=== PATIENT | male | born 1985 | race Caucasian/White ===

== ENCOUNTER 2019-09-21 02:34 | Inpatient (IN) | payer MEDICAID ==
[2019-09-21] VITALS (20 sets, daily range): BP systolic 109–146; BP diastolic 41–77; BMI 31.0
[~2019-09-21] VITALS: Ht 165.1 cm; Wt 85.1 kg
--- NOTE | 2019-09-21 02:40 | NUR ---
PT WAS ASSIGNED TO OUR FACILITY VIA TRAUMA COMM. TRAUMA BAND NUMBER #[id number].
[2019-09-21] MEDS ORDERED: BUSPAR 15 MG TA15 MG PO (02:46)
[2019-09-21] MEDS ORDERED: KEPPRA1000 MG PO (02:46)
--- NOTE | 2019-09-21 02:56 | NUR ---
ASSUMED CARE OF PATIENT. REPORT RECEIVED FROM Yecenia MABRY RN. WAITING TO HEAR FROM [facility] FOR POSSIBLE TRANSFER
[2019-09-21 03:05] LABS: BASOPHILS 0.3 % (0-2); EOSINOPHILS 0.2 % (0-7); HEMATOCRIT 41.1 % (42.0-54.0); HEMOGLOBIN 13.5 g/dL (13.5-17.5); IMMATURE GRANULOCYTES 0.8 % (0-5); LYMPHOCYTES 24.3 % (15-50); MCH 29.4 pg (26.0-34.0); MCHC 32.8 g/dL (31.0-37.0); MCV 89.5 fL (80.0-100.0); MEAN PLATELET VOLUME 9.1 fL (7.4-10.4); MONOCYTES 7.8 % (2-11); NEUTROPHILS 66.6 % (40-80); PLATELET COUNT 248 10x3/uL (130-400); RBC 4.59 10x6/uL (4.20-6.10); WBC 5.9 10x3/uL (4.8-10.8)
[2019-09-21 03:11] LABS: ANION GAP 9.1 mmol/L (8-16); CALCIUM 8.1 mg/dL (8.5-10.1); CARBON DIOXIDE 28.3 mmol/L (21.0-32.0); CREATININE - SERUM 1.2 mg/dL (0.6-1.3); POTASSIUM - SERUM 3.4 mmol/L (3.5-5.1)
[2019-09-21 03:15] LABS: ALBUMIN 2.9 g/dL (3.4-5.0); BILIRUBIN - TOTAL 0.55 mg/dL (0.2-1.3); C-REACTIVE PROTEIN 12.8 mg/dL (0.0-0.9); PROTEIN - SERUM 7.3 g/dL (6.4-8.2)
--- NOTE | 2019-09-21 05:45 | NUR ---
PT ARRIVED VIA STREATCHER FROM ER WITH N95 ON IN STABLE CONDITION. GUARD AT BEDSIDE. MOVED OVER TO BED BYSELF SAFELY. BP IS 114/66, SPO2 93% ON 5L HIGH FLOW, RR 37, AND HR 88. HE DOES C/O OF CHEST PAIN "8/10" NUEMREIC SCALE "ITS LIKE PRESSURE". HE VOICES"ITS BEEN HURTING FOR ABOUT A WEEK NOW BUT GOTTEN WORSE ABOUT 3 HOURS AGO". HE IS NORMAL SINUS ON MONITOR. CHECKING CARDIAC ENZYMES STAT. HE IS A&OX4. ORIENTED TO CALL LIGHT. BED IS LOW,SIDE RAISLX2. PERFORMED ASSESSMENT AND WILL DO HISTORY AND DOC IN FLOWSHEET.
[2019-09-21 06:29] LABS: CREATINE KINASE 67 UL (21-232)
[2019-09-21 06:31] LABS: TROPONIN-I < 0.017 ng/mL (0.000-0.060)
--- NOTE | 2019-09-21 07:00 | NUR ---
PT REPORT RECEIVED FROM SUPERVISOR FITTING NURSE. NO ACUTE SIGNS OF DISTRESS NOTED. SHIFT ASSESSMENT COMPLETED. PT IN WRIST AND ANKLE SHACKLES. GUARD OUTSIDE OF DOOR. WILL CONTINUE TO MONITOR
--- NOTE | 2019-09-21 09:28 | NUR ---
PT ASKED FOR CUP OF WATER. PROVIDED TO PT. RESTING IN BED. NO COMPLAINTS NOTED. WILL CONTINUE TO MONITOR
--- NOTE | 2019-09-21 09:46 | NUR ---
DR CHAVEZ IN ROOM. UPDATE GIVEN. WILL CONTINUE TO MONITOR. OKAY WITH PT HAVING DIET.
--- NOTE | 2019-09-21 12:30 | NUR ---
COVID SWAB AND STREP SWAB PERFORMED ON PT. PT TOLERATED WELL. WRIST SHACKLES REMOVED SO PT CAN EAT LUNCH. WILL CONTINUE TO MONITOR
--- NOTE | 2019-09-21 14:17 | NUR ---
IN ROOM TRYING TO DRAW BLOOD. UNSUCCESSFUL. CALLED LAB TO COME TRY TO DRAW BLOOD. WILL CONTINUE TO MONITOR
--- NOTE | 2019-09-21 15:15 | NUR ---
IN PT ROOM. TURNED O2 UP TO 8L HFNC. PT WAS SATTING 89%. NOW SATTING 92%. WILL CONTINUE TO MONITOR
--- NOTE | 2019-09-21 17:02 | NUR ---
IN ROOM TAKING PT DINNER TRAY. NO COMPLAINTS NOTED AT THIS TIME. O2 INCREASED TO 9L HFNC. PT O2 SAT WAS 90%. WILL CONTINUE TO MONITOR
--- NOTE | 2019-09-21 18:12 | NUR ---
LAB CALLED. PT IS COVID POSITIVE. WILL NOTIFY DR JIN
--- NOTE | 2019-09-21 18:25 | NUR ---
PAGED DR JIN TO NOTIFY HIM OF POSITIVE COVID RESULT. AWAITING CALL BACK
--- NOTE | 2019-09-21 19:00 | NUR ---
SHIFT ASSESSMENT COMPLETE. VS STABLE. NO VISUAL CUES OF DISTRESS NOTED. NS ON THE MONITOR AT THIS TIME.
--- NOTE | 2019-09-21 21:00 | NUR ---
VITAL SIGNS STABLE. NO VISUAL CUES OF DISTRESS NOTED. NS ON THE MONITOR AT THIS TIME.
--- NOTE | 2019-09-21 23:00 | NUR ---
VITAL SIGNS STABLE. NO VISUAL CUES OF DISTRESS NOTED. NS ON THE MONITOR AT THIS TIME.
[2019-09-22] VITALS (23 sets, daily range): BP systolic 112–142; BP diastolic 60–105
--- NOTE | 2019-09-22 01:00 | NUR ---
VITAL SIGNS STABLE. NO VISUAL CUES OF DISTRESS NOTED. NS ON THE MONITOR AT THIS TIME.
--- NOTE | 2019-09-22 03:00 | NUR ---
VITAL SIGNS STABLE. NO VISUAL CUES OF DISTRESS NOTED. NS ON THE MONITOR AT THIS TIME.
--- NOTE | 2019-09-22 05:00 | NUR ---
VITAL SIGNS STABLE. NO VISUAL CUES OF DISTRESS NOTED. NS ON THE MONITOR AT THIS TIME.
[2019-09-22 06:57] LABS: BASOPHILS 0.1 % (0-2); EOSINOPHILS 0 % (0-7); HEMATOCRIT 41.8 % (42.0-54.0); HEMOGLOBIN 13.9 g/dL (13.5-17.5); IMMATURE GRANULOCYTES 0.8 % (0-5); MCH 29.6 pg (26.0-34.0); MCHC 33.3 g/dL (31.0-37.0); MCV 89.1 fL (80.0-100.0); MEAN PLATELET VOLUME 9.1 fL (7.4-10.4); MONOCYTES 6.3 % (2-11); NEUTROPHILS 79.8 % (40-80); RBC 4.69 10x6/uL (4.20-6.10); RDW 13.8 % (11.5-14.5)
--- NOTE | 2019-09-22 07:00 | NUR ---
REPORT RECIEVED FROM THE OFF GOING RN. SEE ASSESSMENT IN THE PTS FLOW SHEET. VSS AT THIS TIME. PT DENIES NEEDS. CALL LIGHT IN REACH. WILL CONT POC.
[2019-09-22 07:04] LABS: INR 0.95 (0.85-1.17); PROTIME 12.6 SECONDS (11.6-15.0)
[2019-09-22 07:07] LABS: PLATELET COUNT 326 10x3/uL (130-400)
[2019-09-22 07:11] LABS: ALBUMIN 2.6 g/dL (3.4-5.0); ALKALINE PHOSPHATASE 84 U/L (30-120); ALT (SGPT) 68 U/L (10-68); BILIRUBIN - TOTAL 0.36 mg/dL (0.2-1.3); CALC OSMOLALITY 280 mosm/kg (275-300); CALCIUM 8.5 mg/dL (8.5-10.1); CARBON DIOXIDE 25.4 mmol/L (21.0-32.0); CHLORIDE - SERUM 107 mmol/L (98-107); GLUCOSE 123 mg/dL (74-106); MAGNESIUM - SERUM 2.4 mg/dL (1.8-2.4); POTASSIUM - SERUM 3.7 mmol/L (3.5-5.1); SODIUM 140 mmol/L (136-145); UREA NITROGEN 14 mg/dL (7-18); eGFR NON AFRICAN AMERICAN > 90 mL/min (90-120)
--- NOTE | 2019-09-22 08:00 | NUR ---
RT IN THE PTS ROOM DOING BREATHING TREATMENT. ONCE PT DID BREATHING TREATMENT, PT STARTED COUGHING AND DESATURATED. NO STRIOR NOTED. PT O2 INCREASED TO 96% AFTER BREATHING COACHING. PT COUGHING SUBSIDED. WILL NOTIFY PROFESSOR IN FAMILY STUDIES.
--- NOTE | 2019-09-22 08:11 | NUR ---
SHIFT ASSESSMENT COMPLETE. VS STABLE. NO VISUAL CUES OF DISTRESS NOTED. SB ON THE MONITOR AT THIS TIME.
--- NOTE | 2019-09-22 08:30 | NUR ---
BREAKFAST TRAY PROVIDED FOR THE PT. AM MEDS GIVEN WITH NO ISSUES. WILL CONT POC.
--- NOTE | 2019-09-22 10:39 | NUR ---
PT VSS. PT WATCHING TV. CALL LIGHT IN REACH. WILL CONT POC.
--- NOTE | 2019-09-22 11:11 | NUR ---
Nutrition follow-up: Diet: Regular PO intake 100% of meals Labs reviewed Wt: 186# Covid+ RDN following.
--- NOTE | 2019-09-22 13:40 | NUR ---
REASSESSMENT COMPLETED SEE FLOW SHEET. VSS. CALL LIGHT IN REACH. WILL CONT POC.
--- NOTE | 2019-09-22 14:56 | NUR ---
PT PLACED ON A NRB PER DR ROSE. PT TOLERATING WELL. VSS. WILL CONT POC.
[2019-09-23] VITALS (17 sets, daily range): BP systolic 90–148; BP diastolic 43–83
--- NOTE | 2019-09-23 07:10 | NUR ---
REPORT RECEVED FROM [employer] OFFICER AND PATIENT CARE RECEIVED. PATIENT LAYING IN BED ON BACK WITH HOB ELEVATED 30 DEGREES. VSS. WILL CONTINUE WITH PLAN OF CARE. SR UP X 2 BED IN LOW POSITION AND CALL LIGHT IN REACH.
--- NOTE | 2019-09-23 10:00 | NUR ---
PATIENT IS AWAKE, ALERT AND ORIENTED X 4. VSS. PATIENT DENIES ANY NEEDS OR PAIN. WILL CONTINUE TO MONITOR. SR UP X 2 BED IN LOW POSITION AND CALL LIGHT IN REACH.
--- NOTE | 2019-09-23 11:15 | NUR ---
PATIENT COMPLAINING OF SOB . PATIENT STATES TAHT HE FEEL LIKE HE IS NOT GETTING ANY AIR. O2 SAT 88 THEN DROPPING TO 80. DR ROSE ON UNIT AND IN ROOM. DR ROSE ORDERS INTUBATION FOR VENTILATION. ANESTHESIA NOTIFIED. PATIENT AGREES AND SIGNS CONSENT.
--- NOTE | 2019-09-23 12:00 | NUR ---
DR DOYLE IN ROOM WITH RT. INTUBATION COMPLETED WTIHOUT DIFFICULTY WITH ETT SZ 8 22 AT LIPS. O2 SAT TO 95%. VSS. OG TUBE AND ULLOA CATHETER PLACED BY HEIDY BOSS RN WITHOUT DIFFICULTY. PATIENT IS STABLE AND VSS. SOFT WRIST RESTRAINTS PLACED TO MILANA WRIST. SR UP X 2 BED IN LOW POSITON AND CALL LIGHT IN REACH.
--- NOTE | 2019-09-23 14:00 | NUR ---
PATIENT IS STABLE AND VSS. WILL CONTINUE TO MONITOR. SR UPX 2 BED IN LOW POSITION AND CALL LIGHT IN REACH.
--- NOTE | 2019-09-23 19:24 | NUR ---
PATIENT CONTINUES ON VENT AND DIPRIVAN. VSS. WILL CONTINUE TO MONITOR. SR UP X 2 BED IN LOW POSITION AND CALL LIGHT IN REACH.
--- NOTE | 2019-09-23 20:55 | MORECARE ---
CASE MANAGEMENT DISCHARGE SUMMARY PATIENT: CAPO VENTURA UNIT: [id number] ADM DATE: 09/21/19 AGE: 33 : 86 SEX: M ROOM/BED: D.2313 AUTHOR: DAMION VAZQUEZ PHYSICIAN: REFERRING PHYSICIAN: POPEYE CHAVEZ MD DATE OF SERVICE: 09/23/19 Discharge Plan Patient Name: CAPO VENTURA Facility: [facility]:[place] : 1985 Planned Disposition: Court\Law Enforcement Anticipated Discharge Date: Discharge Date: Expected LOS: Initial Reviewer: [email or web address] Initial Review Date: 09/21/2019 Generated: 09/23/19 9:54 pm Patient Name: CAPO VENTURA Page [phone] at 2054 All edits/amendments must be made on the electronic document DICTATION DATE: 09/23/192053 GLUE JOINTER FEEDER: JUAN 09/23/192053 RPT#: [id number] DC DATE: STATUS: ADM IN [facility] [address] [place] [address] END OF REPORT
--- NOTE | 2019-09-23 21:02 | MORECARE ---
CASE MANAGEMENT DISCHARGE SUMMARY PATIENT: CAPO VENTURA UNIT: [id number] ADM DATE: 09/21/19 AGE: 33 : 86 SEX: M ROOM/BED: D.2313 AUTHOR: DAMION VAZQUEZ PHYSICIAN: REFERRING PHYSICIAN: POPEYE CHAVEZ MD DATE OF SERVICE: 09/23/19 Discharge Plan Patient Name: CAPO VENTURA Facility: [facility]:[place] : 1985 Planned Disposition: Court\Law Enforcement Anticipated Discharge Date: Discharge Date: Expected LOS: Initial Reviewer: [email or web address] Initial Review Date: 09/21/2019 Generated: 09/23/19 10:01 pm Comments DCP- Discharge Planning Updated by [email or web address]: Cecilia Ramsey on 09/23/19 7:[address] Patient Name: CAPO VENTURA Admission Status: ER Accout number: [id number] Admission Date: 09-21-2019 : 1985 Admission Diagnosis:COVID-19 Attending: LEONIDES Current LOS: 2 Anticipated DC Date: Planned Disposition: Court\Law Enforcement Primary Insurance: MEDICAID HALF-WAY PENDING Discharge Planning Comments: PATIENT IS AN ADC INMATE AT [facility]. PATIENT WILL RETURN THERE UPON DISCHARGE. GUARD AT BEDSIDE. Rug Repairer: Cecilia Ramsey DCPIA - Discharge Planning Initial Assessment Updated by [email or web address]: Cecilia Ramsey on 09/23/19 8:54 pm * Is the patient Alert and Oriented? Yes * PCP ADC * Pharmacy ADC * Preadmission Environment Other * Facility Name [facility] * List name and contact numbers for known caregivers / representatives who currently or will assist patient after discharge: ADC * Verbal permission to speak to the caregivers and representatives has been obtained from the patient. N/A * Additional services required to return to the preadmission environment? No * Can the patient safely return to the preadmission environment? Yes * Has this patient been hospitalized within the prior 30 days at any hospital? No Last DP export: 09/23/19 7:55 pm Patient Name: CAPO VENTURA Page [phone] at 2102 All edits/amendments must be made on the electronic document DICTATION DATE: 09/23/192100 CHANGE MANAGEMENT ADMINISTRATOR: JUAN 09/23/192100 RPT#: [id number] DC DATE: STATUS: ADM IN [facility] [address] [place] [address] END OF REPORT
[2019-09-24] VITALS (24 sets, daily range): BP systolic 85–109; BP diastolic 41–68
--- NOTE | 2019-09-24 07:10 | NUR ---
REPORT RECEIVED FROM BREAKER OILER AND PATIENT CARE ASSUMED. PATIENT LAYING IN BED ON BACK WITH EYES CLOSED AND ON VENT. VSS. SEE FLOW SHEET IN IV INFUSING. WILL CONTINUE WITH PLAN OF CARE. SR UP X 2 BED IN LOW POSITION AND CALL LIGHT IN REACH.
[2019-09-24 07:44] LABS: BASOPHILS 0.2 % (0-2); EOSINOPHILS 3.4 % (0-7); HEMATOCRIT 43.5 % (42.0-54.0); HEMOGLOBIN 14.1 g/dL (13.5-17.5); IMMATURE GRANULOCYTES 1.8 % (0-5); MCHC 32.4 g/dL (31.0-37.0); MCV 89.3 fL (80.0-100.0); MEAN PLATELET VOLUME 9.1 fL (7.4-10.4); MONOCYTES 5.4 % (2-11); NEUTROPHILS 72.2 % (40-80); PLATELET COUNT 365 10x3/uL (130-400); RBC 4.87 10x6/uL (4.20-6.10); RDW 13.8 % (11.5-14.5); WBC 10.8 10x3/uL (4.8-10.8)
[2019-09-24 08:11] LABS: ALBUMIN 2.7 g/dL (3.4-5.0); ALKALINE PHOSPHATASE 72 U/L (30-120); ALT (SGPT) 83 U/L (10-68); BILIRUBIN - DIRECT 0.21 mg/dL (0.00-0.30); BILIRUBIN - INDIRECT 0.28 mg/dL (0.00-1.00); BILIRUBIN - TOTAL 0.49 mg/dL (0.2-1.3); CALC OSMOLALITY 276 mosm/kg (275-300); CALCIUM 8.8 mg/dL (8.5-10.1); CARBON DIOXIDE 29.3 mmol/L (21.0-32.0); CHLORIDE - SERUM 103 mmol/L (98-107); CREATININE - SERUM 0.9 mg/dL (0.6-1.3); GLUCOSE 91 mg/dL (74-106); MAGNESIUM - SERUM 2.9 mg/dL (1.8-2.4); PHOSPHOROUS 4.1 mg/dL (2.5-4.9); POTASSIUM - SERUM 4.2 mmol/L (3.5-5.1); PROTEIN - SERUM 7.1 g/dL (6.4-8.2); SODIUM 138 mmol/L (136-145); UREA NITROGEN 15 mg/dL (7-18); eGFR NON AFRICAN AMERICAN > 90 mL/min (90-120)
--- NOTE | 2019-09-24 11:24 | NUR ---
Nutrition follow-up: Pt is now intubated, sedated with propofol NPO Labs reviewed OGT in place to suction Wt: 187# Recommend starting Pulmocare @ 25 ml/hr with increase to goal rate of 50 ml/hr RDN following.
--- NOTE | 2019-09-24 16:15 | NUR ---
PATIENT BATHED, COMPLETED LINEN CHANGE AND CLEAN GOWN. PATIENT TOLERATED WELL. VSS. WILL CONTINUE TO MONITOR. SR UPX 2 BED IN LOW POSITON AND CALL LIGHT IN REACH.
--- NOTE | 2019-09-24 18:00 | NUR ---
PATIENT BP TRENDING DOWN. BP 88/[address] ROSE. INSTRUCTED TO GIVE PATIENT NS BOLUS OF 250 AND INCREASE RATE TO 150. IF STILL LOW, TITRATE DIPRIVAN TOLERATED. IF NEEDED TITRATE FENTANYL INCREASE. BOLUS STARTED . WILL CONTINUE TO MONITOR.
[2019-09-25] VITALS (24 sets, daily range): BP systolic 74–130; BP diastolic 36–61
[2019-09-25 05:52] LABS: BASOPHILS 0.1 % (0-2); HEMATOCRIT 41.1 % (42.0-54.0); HEMOGLOBIN 13.5 g/dL (13.5-17.5); IMMATURE GRANULOCYTES 1.5 % (0-5); LYMPHOCYTES 13.1 % (15-50); MCH 29.5 pg (26.0-34.0); MCHC 32.8 g/dL (31.0-37.0); MCV 89.7 fL (80.0-100.0); MONOCYTES 2.5 % (2-11); NEUTROPHILS 80.8 % (40-80); PLATELET COUNT 415 10x3/uL (130-400); RBC 4.58 10x6/uL (4.20-6.10); RDW 13.7 % (11.5-14.5)
[2019-09-25 06:02] LABS: WBC 13.8 10x3/uL (4.8-10.8)
[2019-09-25 06:24] LABS: ALBUMIN 2.4 g/dL (3.4-5.0); ALKALINE PHOSPHATASE 65 U/L (30-120); ALT (SGPT) 79 U/L (10-68); BILIRUBIN - INDIRECT 0.19 mg/dL (0.00-1.00); BILIRUBIN - TOTAL 0.39 mg/dL (0.2-1.3); CALC OSMOLALITY 280 mosm/kg (275-300); CALCIUM 8.7 mg/dL (8.5-10.1); CHLORIDE - SERUM 108 mmol/L (98-107); CREATININE - SERUM 0.8 mg/dL (0.6-1.3); GLUCOSE 87 mg/dL (74-106); MAGNESIUM - SERUM 2.4 mg/dL (1.8-2.4); PHOSPHOROUS 3.7 mg/dL (2.5-4.9); PROTEIN - SERUM 6.4 g/dL (6.4-8.2); SODIUM 141 mmol/L (136-145); UREA NITROGEN 16 mg/dL (7-18); eGFR NON AFRICAN AMERICAN > 90 mL/min (90-120)
--- NOTE | 2019-09-25 07:10 | NUR ---
REPORT RECIEVED FROM BEATER ROOM HELPER AND PATIENT CARE ASSUMED. PATIENT LAYING IN BED ON BACK WITH HOB ELEVATED 30 DEGREES. VSS. NO VISIUAL CLUES OF DISTRESS. PATIENT RESPOSITIONED FOR COMFORT. WILL CONTINUE WITH PLAN OF CARE. SR UP X 2 BED IN LOW POSITION AND CALL LIGHT IN REACH.
--- NOTE | 2019-09-25 09:00 | NUR ---
ASSESSMENT COMPLETED. NO VISUAL CUES OF DISTRESS. VSS. WILL CONTINUE TO MONITOR. SR UPX 2 BED IN LOW POSTION AND CALL LIGHT IN REACH.
--- NOTE | 2019-09-25 10:00 | NUR ---
BED BATH GIVEN WITH COMPLETE LINEN CHANGE AND GOWN CHANGE. PATIENT RESPOSITONED FOR COMFORT. VSS. PATIENT SUCTIONED. ORAL CARE GIVEN. NO VISUAL CUES OF DISTRESS NOTED. WILL CONTINUE TO MONITOR. SR UPX 2 BED IN LOW POSITION AND CALL LIGHT IN REACH.
--- NOTE | 2019-09-25 11:30 | NUR ---
ORDER RECEIVED CVL AND AR LINE PLACEMENT DUE TO HYPOTENSION AND HYPOXIA.NO CONSENT OBTAINED DUE TO CRITICAL STATE OF PATIENT. DR CHEEMA PERFORMED CVL PLACEMENT RT IJ AND ART LINE PLACED TO LEFT RADIAL. PATIENT GAVE NO VISUAL CUES OF DISTRESS . WILL CONTINUE TO MONITOR. SR UP X 2 BED IN LOW POSITION AND CALL LIGHT IN REACH.
--- NOTE | 2019-09-25 14:00 | NUR ---
PER VO INSTRUCTION FROM DR ROSE THIS NURSE CONTACTED [facility] TO GIVE MEDICAL UPDATE TO [facility] PHYSICIAN AND VARNISH MAKER. LEFT VM FOR DR KNAPP TO RETURN CALL AND SPOKE WITH VARNISH MAKERSEBASTIAN LI. INFORMED VARNISH MAKER THAT PATIENT CONDITION IS CRITCAL AND PATIENT WROTE ON A PIECE OF PAPER TO TEXT AUNT PIETER AND MICHELLE. INFORMED VARNISH MAKER THAT CM WILL CONTACT [facility] TO ARRANGE ANY VISITORS. JEN VERBALIZED UNDERSTANDING . WILL NOTIFY CM OF SITUATIION. INFORMED HODA WELL.
--- NOTE | 2019-09-25 15:00 | NUR ---
REASSESMENT COMPLETED.
--- NOTE | 2019-09-25 15:10 | NUR ---
WILL RE POSITONING PATIENT, PATIENT USED SIGN LANGUAGE WITH RUGHT HAND IN RESTRAINT. PATIENT ASKED FOR PAPER AND MOTIONED WRITING. PROVIDED PAPER AND PEN PATIENT WROTE" TEXT AUNT PIETER AND MICHELLE." INFORMED PATIENT THAT THIS NURSE WILL ENSURE INFORMATION IS PASSED ON TO ASSISTED BARREL WATERER.
--- NOTE | 2019-09-25 17:00 | NUR ---
NO VISUAL CUES OF DISTRESS NOTED. VSS. ALL IV TUBING CHANGED. SR UP X 2 BED IN LOW POSITION AND CALL LIGHT IN REACH.
--- NOTE | 2019-09-25 20:04 | NUR ---
PATIENT REPOSITIONED FOR COMFORT . VSS. NO VISUAL CUES OF DISTRESS. WILL CONTINUE WITH PLAN OF CARE. SR UP X 2 BED IN LOW POSITION AND CALL LIGHT IN REACH.
--- NOTE | 2019-09-25 22:14 | NUR ---
meds given per mar.
--- NOTE | 2019-09-25 22:17 | NUR ---
FENTANYL SYRINGE CHANGED AT 300 MCG FOR LYLY SALGADO
[2019-09-26] VITALS (25 sets, daily range): BP systolic 86–111; BP diastolic 37–60
[2019-09-26 06:05] LABS: BASOPHILS 0.2 % (0-2); EOSINOPHILS 3.3 % (0-7); HEMATOCRIT 34.8 % (42.0-54.0); IMMATURE GRANULOCYTES 1.2 % (0-5); LYMPHOCYTES 21.4 % (15-50); MCH 28.7 pg (26.0-34.0); MCHC 31.6 g/dL (31.0-37.0); MCV 90.9 fL (80.0-100.0); MONOCYTES 3.7 % (2-11); NEUTROPHILS 70.2 % (40-80); PLATELET COUNT 381 10x3/uL (130-400); RBC 3.83 10x6/uL (4.20-6.10); RDW 13.9 % (11.5-14.5)
[2019-09-26 06:28] LABS: ALBUMIN 1.9 g/dL (3.4-5.0); ALKALINE PHOSPHATASE 49 U/L (30-120); BILIRUBIN - DIRECT 0.17 mg/dL (0.00-0.30); BILIRUBIN - INDIRECT 0.24 mg/dL (0.00-1.00); BILIRUBIN - TOTAL 0.41 mg/dL (0.2-1.3); CALC OSMOLALITY 278 mosm/kg (275-300); CALCIUM 8.3 mg/dL (8.5-10.1); CARBON DIOXIDE 28.4 mmol/L (21.0-32.0); CHLORIDE - SERUM 107 mmol/L (98-107); CREATININE - SERUM 0.8 mg/dL (0.6-1.3); GLUCOSE 76 mg/dL (74-106); MAGNESIUM - SERUM 2.4 mg/dL (1.8-2.4); PHOSPHOROUS 3.2 mg/dL (2.5-4.9); POTASSIUM - SERUM 4.4 mmol/L (3.5-5.1); PROTEIN - SERUM 5.5 g/dL (6.4-8.2); SODIUM 140 mmol/L (136-145); UREA NITROGEN 16 mg/dL (7-18); eGFR NON AFRICAN AMERICAN > 90 mL/min (90-120)
[2019-09-26 06:30] LABS: ALT (SGPT) 53 U/L (10-68)
--- NOTE | 2019-09-26 07:00 | NUR ---
PT REPORT RECEIVED FROM AUTO DEALERSHIP PORTER NURSE. NO ACUTE SIGNS OF DISTRESS NOTED. PT RESTING IN BED SEDATED AND INTUBATED. LT RADIAL ART LINE NOTED. GUARD OUTSIDE OF ROOM. SHFIT ASSESSMENT COMPLETED. WILL CONTINUE TO MONITOR
--- NOTE | 2019-09-26 09:00 | NUR ---
TUBE FEEDING STARTED VIA OGT. STARTED AT 10CC/HR. VERIFIED PLACEMENT AUSCULTATION. WILL CONTINUE TO MONITOR
--- NOTE | 2019-09-26 11:00 | NUR ---
Nutrition follow-up: Pt intubated, sedated Pulmocare started @ 10 ml/hr with no goal rate Labs reviewed WT: 186# Recommend advancing TF to goal rate of 55 ml/hr RDN following.
--- NOTE | 2019-09-26 11:00 | NUR ---
IN PT ROOM. PT ART LINE BP LOW. REPOSITIONED TRANSDUCER. REASSESSMENT COMPLETED. WILL CONTINUE TO MONITOR
--- NOTE | 2019-09-26 13:03 | NUR ---
DR ROSE AT BEDSIDE. UPDATE GIVEN. WILL CONTINUE TO MONITOR
--- NOTE | 2019-09-26 15:05 | NUR ---
PT RESTING IN BED. INTUBATED AND SEDATED. NO SIGNS OF DISTRESS NOTED. GUARD OUTSIDE OF ROOM. WILL CONTINUE TO MONITOR
--- NOTE | 2019-09-26 16:02 | NUR ---
DR CHEEMA ON PHONE WITH MRS. GODOY FROM [facility]. TALKED WITH ADMINISTRATION TO GET CLARIFICATION ON IF FAMILY COULD VISIT SINCE PT IS VERY SICK AND PROGNOSIS IS NOT GOOD. THREE VISITORS AT A TIME. THEY MUST STAND OUTSIDE OF ROOM SINCE PT IS COVID POSITIVE. WILL CONTINUE TO MONITOR
--- NOTE | 2019-09-26 17:50 | NUR ---
PT GIVEN CHG BATH. TOLERATED WELL. TURNED FIO2 DOWN TO 80% PER DR ROSE. WILL CONTINUE TO MONITOR
--- NOTE | 2019-09-26 18:48 | NUR ---
PT ETT CUFF LEAKING. RT IN ROOM TRYING TO FIX CUFF. PT DESATTING SO CHG BATH HELD.
[2019-09-27] VITALS (24 sets, daily range): BP systolic 95–124; BP diastolic 44–67
--- NOTE | 2019-09-27 02:03 | NUR ---
1900-CONT WITH VENT AT 90%. OGT WITH PULMOCARE AT 20ML/HR. CHECKED RESDIUALS, NONE NOTED. INCREASED TF TO 30 ML/HR PER ORDERS. LEFT A LINE. RIGHT IJ. 2100-PATIENT DESATING FEW TIMES, BUT DOES RECOVER AFTER A WHILE. 0-REASSESSMENT COMPLETED. NO CHANGES SINCE LAST ASSESSMENT 0100-VSS, CONT TO DESAT AT TIMES. NO CHANGES REPOSITIONING AND ORAL CARE EVERY 2 HOURS.
--- NOTE | 2019-09-27 04:13 | NUR ---
0300- NO RESIDUALS TO OGT, PLACEMENT CHECKED. STILL RUNNING AT 30 ML /HR. 0400-TUBE FEEDING BAG CHANGED. CHG BATH WITH COMPLETE LINEN CHANGE COMPLETED. VSS.
[2019-09-27 05:18] LABS: HEMATOCRIT 35.9 % (42.0-54.0); HEMOGLOBIN 11.7 g/dL (13.5-17.5); LYMPHOCYTES 5.9 % (15-50); MCH 29.5 pg (26.0-34.0); MCHC 32.6 g/dL (31.0-37.0); MCV 90.4 fL (80.0-100.0); NEUTROPHILS 90.4 % (40-80); RBC 3.97 10x6/uL (4.20-6.10); RDW 13.1 % (11.5-14.5); WBC 11.8 10x3/uL (4.8-10.8)
[2019-09-27 05:19] LABS: PLATELET COUNT 494 10x3/uL (130-400)
[2019-09-27 05:44] LABS: % SATURATION 13 % (15-55); IRON 36 ug/dl (35-150); UNSAT IRON BIND CAPACITY 234 ug/dl (150-375)
[2019-09-27 05:46] LABS: TOTAL IRON BIND CAPACITY 270 ug/dl (260-445)
--- NOTE | 2019-09-27 05:48 | NUR ---
NO CHANGES. REPOSITIONING AND ORAL CARE EVERY 2 HOURS
[2019-09-27 06:05] LABS: ALBUMIN 2.2 g/dL (3.4-5.0); ALKALINE PHOSPHATASE 69 U/L (30-120); ALT (SGPT) 66 U/L (10-68); BILIRUBIN - DIRECT 0.26 mg/dL (0.00-0.30); BILIRUBIN - INDIRECT 0.13 mg/dL (0.00-1.00); BILIRUBIN - TOTAL 0.39 mg/dL (0.2-1.3); CALC OSMOLALITY 280 mosm/kg (275-300); CALCIUM 8.3 mg/dL (8.5-10.1); CARBON DIOXIDE 30.9 mmol/L (21.0-32.0); CHLORIDE - SERUM 104 mmol/L (98-107); CREATININE - SERUM 0.6 mg/dL (0.6-1.3); FERRITIN 527 ng/mL (3-244); GLUCOSE 137 mg/dL (74-106); PROTEIN - SERUM 5.4 g/dL (6.4-8.2); SODIUM 139 mmol/L (136-145); UREA NITROGEN 15 mg/dL (7-18); VANCOMYCIN - TROUGH 5.5 ug/mL (10.0-20.0); eGFR NON AFRICAN AMERICAN > 90 mL/min (90-120)
--- NOTE | 2019-09-27 07:00 | NUR ---
BEDSIDE REPORT RECEIVED. SHIFT ASSESSMENT COMPLETED PER FLOWSHEET, SEE FLOWSHEET FOR INFORMATION. VSS. NO ACUTE NEEDS OR DISTRESS NOTED AT THIS TIME. WILL CONT TO MONITOR.
--- NOTE | 2019-09-27 09:00 | NUR ---
AUNT AT BEDSIDE. EXPLAINED CODE STATUS TO AUNT AND SHE ASKED "CAN I HAVE SOME TIME TO THINK ABOUT IT?" EXPLAINED SHE COULD TAKE HER TIME BUT IT IS A URGENT ISSUE. WILL CONT TO MONITOR.
--- NOTE | 2019-09-27 11:00 | NUR ---
REASSESSMENT COMPLETED PER FLOWSHEET, SEE FLOWSHEET FOR INFORMATION. PT RESPONSIVE TO VOICE. NO ACUTE NEEDS OR DISTRESS NOTED AT THIS TIME. AT BEDSIDE. WILL CONT TO MONITOR.
--- NOTE | 2019-09-27 13:00 | NUR ---
PT AUNT PIETER AT BEDSIDE. WILL CONT TO MONITOR.
--- NOTE | 2019-09-27 17:00 | NUR ---
PT INTUBATED AND SEDATED. NO ACUTE NEEDS OR DISTRESS NOTED AT THIS TIME. VSS. WILL CONT TO MONITOR.
[2019-09-28] VITALS (24 sets, daily range): BP systolic 101–131; BP diastolic 50–68
--- NOTE | 2019-09-28 00:48 | NUR ---
1900-ASSESSMENT COMPLETED. VSS. 2100- NO CHANGES. CONT ON ETT/OGT. PULMOCARE AT 45ML/HR (GOAL). RESIDUAL OF 5ML 0- REASSESSMENT COMPLETED. NO CHANGES 48- NO CHANGES. VSS. FOLLOWS COMMANDS REPOSITIONING AND ORAL CARE PROVIDED EVERY 2 HOURS.
--- NOTE | 2019-09-28 03:00 | NUR ---
CHG BATH WITH COMPLETE LINEN CHANGE. CVP 10
[2019-09-28 05:45] LABS: BASOPHILS 0.1 % (0-2); EOSINOPHILS 0 % (0-7); HEMATOCRIT 34.3 % (42.0-54.0); HEMOGLOBIN 10.9 g/dL (13.5-17.5); IMMATURE GRANULOCYTES 1.7 % (0-5); LYMPHOCYTES 5.5 % (15-50); MCH 28.9 pg (26.0-34.0); MCHC 31.8 g/dL (31.0-37.0); MEAN PLATELET VOLUME 9.4 fL (7.4-10.4); MONOCYTES 9.8 % (2-11); NEUTROPHILS 82.9 % (40-80); PLATELET COUNT 537 10x3/uL (130-400); RBC 3.77 10x6/uL (4.20-6.10); RDW 13.5 % (11.5-14.5)
[2019-09-28 05:48] LABS: WBC 15.8 10x3/uL (4.8-10.8)
--- NOTE | 2019-09-28 06:06 | NUR ---
0500- NO CHANGES, VSS
[2019-09-28 06:18] LABS: ALKALINE PHOSPHATASE 67 U/L (30-120); BILIRUBIN - DIRECT 0.13 mg/dL (0.00-0.30); BILIRUBIN - INDIRECT 0.25 mg/dL (0.00-1.00); BILIRUBIN - TOTAL 0.38 mg/dL (0.2-1.3); CALC OSMOLALITY 282 mosm/kg (275-300); CALCIUM 7.9 mg/dL (8.5-10.1); CARBON DIOXIDE 33.6 mmol/L (21.0-32.0); CHLORIDE - SERUM 103 mmol/L (98-107); CREATININE - SERUM 0.7 mg/dL (0.6-1.3); GLUCOSE 154 mg/dL (74-106); PROTEIN - SERUM 5.7 g/dL (6.4-8.2); SODIUM 139 mmol/L (136-145); UREA NITROGEN 17 mg/dL (7-18); eGFR NON AFRICAN AMERICAN > 90 mL/min (90-120)
[2019-09-28 06:20] LABS: ALT (SGPT) 103 U/L (10-68); POTASSIUM - SERUM 4.1 mmol/L (3.5-5.1)
--- NOTE | 2019-09-28 07:00 | NUR ---
BEDSIDE REPORT RECEIVED. SHIFT ASSESSMENT COMPLETED PER FLOWSHEET, SEE FLOWSHEET FOR INFORMATION. PT INTUBATED AND SEDATED, NO ACUTE NEEDS OR DISTRESS NOTED AT THIS TIME. VSS. WILL CONT TO MONITOR.
--- NOTE | 2019-09-28 09:00 | NUR ---
PT INTUBATED AND SEDATED. NO ACUTE NEEDS OR DISTRESS NOTED AT THIS TIME. VSS. WILL CONT TO MONITOR.
--- NOTE | 2019-09-28 11:00 | NUR ---
REASSESSMENT COMPLETED PER FLOWSHEET, SEE FLOWSHEET FOR INFORMATION. NO ACUTE NEEDS OR DISTRESS NOTED AT THIS TIME. VSS. AT BEDSIDE. WILL CONT TO MONITOR.
--- NOTE | 2019-09-28 13:00 | NUR ---
PT INTUBATED AND SEDATED. NO ACUTE NEEDS OR DISTRESS NOTED AT THIS TIME. VSS. WILL CONT TO MONITOR.
--- NOTE | 2019-09-28 15:00 | NUR ---
REASSESSMENT COMPLETED PER FLOWSHEET, SEE FLOWSHEET FOR INFORMATION. NO ACUTE NEEDS OR DISTRESS NOTED AT THIS TIME. PT INTUBATED AND SEDATED. WILL CONT TO MONITOR.
--- NOTE | 2019-09-28 17:00 | NUR ---
PT INTUBATED AND SEDATED. NO ACUTE NEEDS OR DISTRESS NOTED AT THIS TIME. VSS. WILL CONT TO MONITOR.
--- NOTE | 2019-09-28 19:11 | NUR ---
patient report recieved.
--- NOTE | 2019-09-28 21:16 | NUR ---
stephanie on vent. meds given per mar. see adl.
--- NOTE | 2019-09-28 23:24 | NUR ---
patient sedated intubated. no acute distress. vss. sinus jessie. tubing changed. will continue to montior
--- NOTE | 2019-09-28 23:56 | OP ---
PATIENT NAME: CAPO VENTURA MEDICAL RECORD: [id number] :87 LOCATION:.[facility] D.2313 ADMISSION DATE:09/21/19 SURGEON: JV CHEEMA MD DATE OF OPERATION: 09/25/2019 PREOPERATIVE DIAGNOSES: 1. COVID-19 pneumonia. 2. Hypoxia. 3. Ventilatory failure. 4. Hypotension requiring continuous hemodynamic monitoring. POSTOPERATIVE DIAGNOSES: 1. COVID-19 pneumonia. 2. Hypoxia 3. Ventilatory failure. 4. Hypotension requiring continuous hemodynamic monitoring. PROCEDURE: Insertion of right internal jugular triple lumen central venous catheter placement. Placement of left radial artery arterial line for continuous hemodynamic monitoring. SURGEON: Jv Cheema MD ENGINE REPAIRER SERVICE: None. BLOOD LOSS: Minimal. ANESTHESIA: Local. COMPLICATIONS: None. DESCRIPTION OF PROCEDURE: The patient is critically ill. His condition is very fragile. Even with a little bit of movement he becomes hypoxic. We were unable to obtain consent for this patient despite attempts to do so. I felt that his condition constituted an emergency and gave an emergency permission to perform the procedure. He was positioned in the Trendelenburg procedure. The entire procedure was performed in the presence of a nurse. The right neck was sterilely prepped and draped. A local anesthetic was used to infiltrate the skin and subcutaneous tissues at the base of the right neck. The right internal jugular vein was percutaneously accessed in an antegrade fashion. A guidewire passed easily. A small skin bri was accomplished. A vessel dilator was used to dilate a subcutaneous tract. A triple lumen central venous catheter was inserted to the hub. It was sutured in place times 3. All lumens flushed easily and aspirated dark, nonpulsatile blood. Attention was then turned to placement of an arterial line. The left wrist was supinated. The volar surface of the left wrist was sterilely prepped and draped. A local anesthetic was used to infiltrate the skin and subcutaneous tissues overlying the radial artery. An Dick's test demonstrated adequate collateral flow via the ulnar artery. I then percutaneously accessed the left radial artery in a retrograde fashion. A guidewire passed easily. A small skin OPERATIVE REPORT [id number] CAPO VENTURA bri was accomplished. A long Angiocath type catheter was inserted over the wire. It was attached to a flushed transducer tubing. There was an excellent waveform on the monitor. The arterial line was then sutured in place times 1. TRANSINT:[id number] Voice Confirmation ID: [id number] DOCUMENT ID: [id number] JV CHEEMA MD at 2356 CC: KAYLEE ROSE MD and POPEYE CHAVEZ MD [id number] DICTATION DATE: 09/25/192029 ALUMINUM SIDING MECHANIC: 09/26/19 0421 ADM IN [place] [id number] [place] [address]
[2019-09-29] VITALS (24 sets, daily range): BP systolic 105–150; BP diastolic 54–96
--- NOTE | 2019-09-29 02:38 | NUR ---
patient sedated. no acute distress. see adl. see reassement
[2019-09-29 05:56] LABS: HEMOGLOBIN 11.3 g/dL (13.5-17.5); LYMPHOCYTES 10.3 % (15-50); MCH 29.1 pg (26.0-34.0); MCHC 32.3 g/dL (31.0-37.0); MCV 90.2 fL (80.0-100.0); MEAN PLATELET VOLUME 8.9 fL (7.4-10.4); NEUTROPHILS 81.2 % (40-80); PLATELET COUNT 565 10x3/uL (130-400); RBC 3.88 10x6/uL (4.20-6.10); RDW 13.1 % (11.5-14.5); WBC 14.8 10x3/uL (4.8-10.8)
[2019-09-29 06:28] LABS: ALKALINE PHOSPHATASE 67 U/L (30-120); ALT (SGPT) 101 U/L (10-68); BILIRUBIN - TOTAL 0.34 mg/dL (0.2-1.3); CALC OSMOLALITY 281 mosm/kg (275-300); CALCIUM 8.4 mg/dL (8.5-10.1); CARBON DIOXIDE 33.9 mmol/L (21.0-32.0); CHLORIDE - SERUM 105 mmol/L (98-107); CREATININE - SERUM 0.7 mg/dL (0.6-1.3); GLUCOSE 124 mg/dL (74-106); POTASSIUM - SERUM 4.4 mmol/L (3.5-5.1); PROTEIN - SERUM 5.6 g/dL (6.4-8.2); SODIUM 140 mmol/L (136-145); UREA NITROGEN 18 mg/dL (7-18); eGFR NON AFRICAN AMERICAN > 90 mL/min (90-120)
--- NOTE | 2019-09-29 12:30 | NUR ---
Nutrition follow-up: Pt remains intubated, sedated Pulmocare infusing @ 45 ml/hr Labs reviewed Wt: 197# Pt tolerating TF at this time RDN following.
--- NOTE | 2019-09-29 19:13 | NUR ---
patient report received. see adl's. see assessment.
--- NOTE | 2019-09-29 22:34 | NUR ---
2100- meds given per may. patient nodding head. increased propofol due to agitation and moving around in bed while intubated. suctioned. see adl. will continue to monitor. zero'd a line and cvp line
[2019-09-30] VITALS (25 sets, daily range): BP systolic 110–128; BP diastolic 53–67
--- NOTE | 2019-09-30 00:10 | NUR ---
2300-RESIDUALS CHECKED. 75 CC. PUT BACK INTO PATIENT. WILL CONTINUE TUBE FEEDINGS
--- NOTE | 2019-09-30 04:51 | NUR ---
labs drawn. tube feeding back changed. lines zeroed.
--- NOTE | 2019-09-30 04:51 | NUR ---
0100-pateint noted to be flushed. chest hot and red. blankets taken off. temp turned down in room. lights turned down. will continue to monitor
[2019-10-01] VITALS (26 sets, daily range): BP systolic 90–116; BP diastolic 44–65
--- NOTE | 2019-10-01 00:50 | NUR ---
patient residuals 50cc
--- NOTE | 2019-10-01 03:39 | NUR ---
propofol tubing changed. no acute distress. guard at bedside.
--- NOTE | 2019-10-01 05:30 | NUR ---
bath at this time
[2019-10-01 05:54] LABS: ALBUMIN 2.1 g/dL (3.4-5.0); ALKALINE PHOSPHATASE 66 U/L (30-120); BILIRUBIN - TOTAL 0.37 mg/dL (0.2-1.3); CALC OSMOLALITY 278 mosm/kg (275-300); CALCIUM 8.2 mg/dL (8.5-10.1); CARBON DIOXIDE 35.1 mmol/L (21.0-32.0); CHLORIDE - SERUM 105 mmol/L (98-107); CREATININE - SERUM 0.7 mg/dL (0.6-1.3); GLUCOSE 84 mg/dL (74-106); POTASSIUM - SERUM 4.1 mmol/L (3.5-5.1); PROTEIN - SERUM 5.6 g/dL (6.4-8.2); SODIUM 139 mmol/L (136-145); UREA NITROGEN 18 mg/dL (7-18); eGFR NON AFRICAN AMERICAN > 90 mL/min (90-120)
--- NOTE | 2019-10-01 06:21 | NUR ---
bp noted to be lower 90/65 map 58. will continue to monitor and see if rises on its own
[2019-10-01 06:29] LABS: ALT (SGPT) 68 U/L (10-68)
[2019-10-01 06:52] LABS: HEMATOCRIT 37.6 % (42.0-54.0); HEMOGLOBIN 12.2 g/dL (13.5-17.5); LYMPHOCYTES 26.4 % (15-50); MCH 29.4 pg (26.0-34.0); MCHC 32.4 g/dL (31.0-37.0); MCV 90.6 fL (80.0-100.0); MEAN PLATELET VOLUME 9.2 fL (7.4-10.4); NEUTROPHILS 63.1 % (40-80); PLATELET COUNT 586 10x3/uL (130-400); RBC 4.15 10x6/uL (4.20-6.10); RDW 13.6 % (11.5-14.5); WBC 16.5 10x3/uL (4.8-10.8)
[2019-10-01 07:17] LABS: TRIGLYCERIDE 218 mg/dL (30-200)
--- NOTE | 2019-10-01 11:19 | NUR ---
Nutrition follow-up: Remains intubated, sedated with propofol Labs reviewed Pulmocare @ 45 ml/hr RDN following.
[2019-10-02] VITALS (24 sets, daily range): BP systolic 84–173; BP diastolic 39–131
[2019-10-02 05:41] LABS: CALC OSMOLALITY 279 mosm/kg (275-300); CALCIUM 8.1 mg/dL (8.5-10.1); CARBON DIOXIDE 31.8 mmol/L (21.0-32.0); CHLORIDE - SERUM 105 mmol/L (98-107); CREATININE - SERUM 0.6 mg/dL (0.6-1.3); GLUCOSE 102 mg/dL (74-106); POTASSIUM - SERUM 3.6 mmol/L (3.5-5.1); SODIUM 139 mmol/L (136-145); UREA NITROGEN 19 mg/dL (7-18); eGFR NON AFRICAN AMERICAN > 90 mL/min (90-120)
[2019-10-02 06:02] LABS: HEMATOCRIT 35.4 % (42.0-54.0); HEMOGLOBIN 11.5 g/dL (13.5-17.5); LYMPHOCYTES 21.9 % (15-50); MCH 29.1 pg (26.0-34.0); MCHC 32.5 g/dL (31.0-37.0); MCV 89.6 fL (80.0-100.0); NEUTROPHILS 70.5 % (40-80); PLATELET COUNT 538 10x3/uL (130-400); RBC 3.95 10x6/uL (4.20-6.10); RDW 13.7 % (11.5-14.5); WBC 17.6 10x3/uL (4.8-10.8)
--- NOTE | 2019-10-02 07:26 | NUR ---
1900 - REPORT RECEIVED. PT SEDATED ON VENT. ASSESSMENT COMPLETED, SEE FLOWSHEET. RT JUGULAR CVL INFUSING, SEE IV FLOWSHEET. NO ACUTE DISTRESS NOTED. 2100 - PT SEDATED, RESTING IN BED. 2300 - REASSESSMENT COMPLETED. SEE FLOWSHEET. 0100 - PT SEDATED ON VENT, NO ACUTE DISTRESS NOTED. 0300 - REASSESSMENT COMPLETED, SEE FLOWSHEET. 0500 - NO CHANGES IN STATUS. WILL CONTINUE TO MONITOR.
--- NOTE | 2019-10-02 19:00 | NUR ---
REPORT RECEIVED. PT SEDATED ON VENT. NO ACUTE DISTRESS NOTED. ASSESSMENT COMPLETED, SEE FLOWSHEET. RT IJ CVL INFUSING, SEE IV FLOWSHEET. WILL CONTINUE TO MONITOR.
[2019-10-03] VITALS (25 sets, daily range): BP systolic 99–198; BP diastolic 49–118; Ht 165.1 cm; Wt 85.1 kg
--- NOTE | 2019-10-03 06:56 | NUR ---
2100 - PT SEDATED ON VENT, NO ACUTE DISTRESS NOTED. OGT TO LIS 2300 - REASSESSMENT COMPLETED, SEE FLOWSHEET. 0100 - PT REPORTS NAUSEA, PRN MEDICATION ADMINISTERED. 0300 - REASSESSMENT COMPLETED, SEE FLOWSHEET. 0500 - BLOODY URINE NOTED IN ULLOA WITH CLOTS IN LINE. WILL CONTINUE TO MONITOR.
--- NOTE | 2019-10-03 07:00 | NUR ---
BEDSIDE REPORT RECEIVED. SHIFT ASSESSMENT COMPLETED PER FLOWSHEET, SEE FLOWSHEET FOR INFORMATION. PT C/O NAUSEA, WILL GIVE ZOFRAN PER EMAR. VSS. NO OTHER ACUTE NEEDS OR DISTRESS NOTED AT THIS TIME. WILL CONT TO MONITOR.
[2019-10-03 07:07] LABS: ALBUMIN 2.4 g/dL (3.4-5.0); ALKALINE PHOSPHATASE 66 U/L (30-120); ALT (SGPT) 64 U/L (10-68); BILIRUBIN - TOTAL 0.56 mg/dL (0.2-1.3); CALC OSMOLALITY 276 mosm/kg (275-300); CALCIUM 8.4 mg/dL (8.5-10.1); CARBON DIOXIDE 30.5 mmol/L (21.0-32.0); CHLORIDE - SERUM 102 mmol/L (98-107); CREATININE - SERUM 0.7 mg/dL (0.6-1.3); GLUCOSE 86 mg/dL (74-106); POTASSIUM - SERUM 3.7 mmol/L (3.5-5.1); PROTEIN - SERUM 5.9 g/dL (6.4-8.2); SODIUM 137 mmol/L (136-145); eGFR NON AFRICAN AMERICAN > 90 mL/min (90-120)
[2019-10-03 07:08] LABS: UREA NITROGEN 24 mg/dL (7-18)
[2019-10-03 07:59] LABS: HEMATOCRIT 36.1 % (42.0-54.0); HEMOGLOBIN 11.7 g/dL (13.5-17.5); LYMPHOCYTES 24.8 % (15-50); MCHC 32.4 g/dL (31.0-37.0); MCV 89.4 fL (80.0-100.0); MEAN PLATELET VOLUME 9.5 fL (7.4-10.4); NEUTROPHILS 65.7 % (40-80); PLATELET COUNT 530 10x3/uL (130-400); RBC 4.04 10x6/uL (4.20-6.10); RDW 13.6 % (11.5-14.5); WBC 16.1 10x3/uL (4.8-10.8)
--- NOTE | 2019-10-03 09:09 | NUR ---
Nutrition follow-up: Pt c/o nausea; TF of and OGT->LIWS Labs reviewed Pt remains intubated Wt: 196# Will need Pulmocare restarted wthin 24 hours to meet estimated nutritional needs. RDN following.
--- NOTE | 2019-10-03 09:25 | NUR ---
PUT ON PRESSURE SUPPORT TRIALS AND DECREASED O2 TO 50%. WILL CONT TO MONITOR.
--- NOTE | 2019-10-03 11:00 | NUR ---
REASSESSMENT COMPLETED PER FLOWSHEET, SEE FLOWSHEET FOR INFORMATION. NO ACUTE NEEDS OR DISTRESS NOTED AT THIS TIME. AT BEDSIDE, AWAITING EXTUBATION. WILL CONT TO MONITOR.
--- NOTE | 2019-10-03 11:20 | NUR ---
LEFT ART LINE TAKEN OUT PER POLICY, ART LINE HAD BLOOD LEAKING AROUND LINE AND GETTING ON LINEN. INCISION BLEED FOR 5 MINUTES, HELD PRESSURE DRESSING IN PLACE. NO BLEEDING NOTED AFTER 5 MINUTES. PRESSURE DRESSING CDI. WILL CONT TO MONITOR.
--- NOTE | 2019-10-03 11:50 | NUR ---
PT EXTUBATED. PUT ON BIPAP 02/22, 75%. VSS. WILL CONT TO MONITOR.
--- NOTE | 2019-10-03 13:00 | NUR ---
PT ON BIPAP 02 SATS ARE 90%-97%. PT DENIES ANY ACUTE NEEDS OR DISTRESS. WILL CONT TO [facility].
--- NOTE | 2019-10-03 15:00 | NUR ---
REASSESSMENT COMPLETED PER FLOWSHEET, SEE FLOWSHEET FOR INFORMATION. NO ACUTE NEEDS OR DISTRESS NOTED AT THIS TIME. REPOSTIONED PER ALISIA, LORI ROCHAN. VSS. WILL CONT TO MONITOR.
--- NOTE | 2019-10-03 17:00 | NUR ---
PT RESTING IN BED WATCHING TV, BIPAP IN PLACE. NO ACUTE NEEDS OR DISTRESS NOTED AT THIS TIME. VSS. WILL CONT TO MONITOR.
--- NOTE | 2019-10-03 19:02 | NUR ---
RECIVED REPORT, PT IS RESTING IN BED AWAKE A&OX4 WITH BIPAP ON. VSS. HE DOES VOICE "I FEEL SICK TO MY STOMACH". RECIVED IN REPROT THAT PT HAS HD NAUSEA DURING THE DAY AND TX BY RODRIGO. PT VOICES"I THINK ITS BECAUSE I HAVENT EATEN AND I CANT EAT YET". NO OTHER C/O VOICED AND HE VOICES"NO" TO ANY PAIN. FULL ASSESSMENT PERFORMED AND WILL DOC IN FLOWSHEET. BED IS LEFT LOW,SIDE RAISLX2,C ALL LIGHT WIHTIN REACH. GUARD AT DOOR.
--- NOTE | 2019-10-03 21:00 | NUR ---
PT IS RESTING IN BED WITH BIPAP ON HOB IS AT 40DEGREES. VSS. HE PUTS HIS THUMB UP WHEN ASKED IF HE IS OK. NO NEEDS OR C/O VOICED. BED IS LOW,SIDE RAISLX2,CALL LIGHT WITHIN REACH. WILL CONTINUE TO MONITOR. GUARD AT DOOR
--- NOTE | 2019-10-03 21:50 | NUR ---
ETTA LÓPEZ APN CALLED AT THIS TIME. UPDATED ON PT STATUS AND THAT PT IS NPO YET HAD KEPPRA 500MG PO DUE. T.O TO GIVE KEPPRA 500MG IV ONE TIME AT THIS TIME AND TO GET KEPPRA SERUS LEVEL WITH AM LABS. T.O READ BACK CORRECT
--- NOTE | 2019-10-03 23:07 | NUR ---
PT IS RESTING IN BED SITTING UP WITH BIPAP ON WATCHING TV. HE IS A&OX4, VSS. RE-ASSESSMENT PERFORMED AND WILL DOC IN FLOWSHEET. HE MOVES HIMSELF IN THE BED INDEPENDENTLY FOR COMFORT. NO NEED OR C/O VOICED. SCD'S ARE ON. BED IS LOW,SIDE RAISLX2,CALL LIGHT WITHIN REACH. LEVARD AT DOOR Y
[2019-10-04] VITALS (12 sets, daily range): BP systolic 107–132; BP diastolic 49–77
--- NOTE | 2019-10-04 01:00 | NUR ---
PT IS RESTING IN BED WITH EYES CLOSED. AWAKES EASILY. VSS. SHE VOICES"IM GOOD". AND "NO" TO PAIN. BED IS LOW,SIDE RAISLX2,CALL LIGHT WITHIN REACH. BED ALARM ON. WILL CONINTUE TO MONITOR
--- NOTE | 2019-10-04 03:00 | NUR ---
PT IS RESTING IN BED WITH EYES CLOSED. BIPAP ON. VSS. AWAKES EASILY. HE VOICES NO NEEDS AND STATES"IM GOOD". HE TURNS HIMSELF INDIVIDUALLY IN BED. SCD'S ARE ON BILAT. RE-ASSESSMENT COMPLETE. BED IS LOW,SIDE RAISLX2,CALL LIGTH WITHIN REACH. WILL CONITNUE TO [facility]
--- NOTE | 2019-10-04 05:17 | NUR ---
PT IS RESTING IN BED WITH EYES CLOSED. AWAKES EASILY. VSS. PROVIDED FULL BEDBATH WITH CHG, PROVIDED ULLOA CATHEOTOR CARE. NEW LINENS AND GOWN. PT HELPED BY ROLLING SIDE TO SIDE AND TOLERATED WELL. VS REMAINED STABLE. SCD'S PUT BACK ON BILAT, MACHINE ON. BED WAS LEFT LOW,SIDE RAISLX2,CALL LIGHT WITHIN REACH. WILL CONINTUE TO MONITOR
--- NOTE | 2019-10-04 06:26 | NUR ---
PT IS RESTING IN BED WATCHING TV. BIPAP IS ON. VSS. NO DISTRESS NOTED. BED IS LOW,SIDE RAISLX2,CALL LIGHT WITHIN REACH. WILL CONTINUE TO MONITOR
--- NOTE | 2019-10-04 07:00 | NUR ---
BEDSIDE REPORT RECEIVED. SHIFT ASSESSMENT COMPLETED PER FLOWSHEET, SEE FLOWSHEET FOR INFORMATION. NO ACUTE NEEDS OR DISTRESS NOTED AT THIS TIME. VSS. WILL CONT TO MONITOR.
--- NOTE | 2019-10-04 09:00 | NUR ---
NO ACUTE NEEDS OR DISTRESS NOTED AT THIS TIME. VSS. PT OFF BIPAP AND ON HF NC 6L, 02 SATS ARE 92%. WILL CONT TO MONITOR.
[2019-10-04 09:34] LABS: ALBUMIN 2.7 g/dL (3.4-5.0); ALKALINE PHOSPHATASE 74 U/L (30-120); ALT (SGPT) 58 U/L (10-68); CALC OSMOLALITY 281 mosm/kg (275-300); CALCIUM 8.4 mg/dL (8.5-10.1); CARBON DIOXIDE 29.6 mmol/L (21.0-32.0); CHLORIDE - SERUM 104 mmol/L (98-107); CREATININE - SERUM 0.6 mg/dL (0.6-1.3); GLUCOSE 73 mg/dL (74-106); PROTEIN - SERUM 5.7 g/dL (6.4-8.2); SODIUM 141 mmol/L (136-145); UREA NITROGEN 19 mg/dL (7-18); eGFR NON AFRICAN AMERICAN > 90 mL/min (90-120)
--- NOTE | 2019-10-04 11:00 | NUR ---
REASSESSMENT COMPLETED PER FLOWSHEET, SEE FLOWSHEET FOR INFORMATION. NO ACUTE NEEDS OR DISTRESS NOTED AT THIS TIME. VSS. WILL CONT TO MONITOR.
--- NOTE | 2019-10-04 13:00 | NUR ---
PT RESTING IN BED WATCHING TV. NO ACUTE NEEDS OR DISTRESS NOTED AT THIS TIME. VSS. WILL CONT TO MONITOR.
--- NOTE | 2019-10-04 15:10 | NUR ---
ULLOA CATHER TAKEN OUT, 8ML OF STERILE WATER PULLED FROM BALLOON. NO ACUTE NEEDS OR DISTRESS NOTED AT THIS TIME. VSS. PT TRANSFERED TO [facility] ROOM 2131.
--- NOTE | 2019-10-04 15:12 | NUR ---
REPORT CALLED TO ISMAEL RIBEIRO ON MED 2. WILL CONT TO MONITOR.
--- NOTE | 2019-10-04 17:56 | NUR ---
PT ARRIVED VIA BED TO ROOM. CAN NOT SPEAK LOUDLY D/T THROAT PAIN POST INTUBATION. NO COMPLAINTS OR CONCERNS STATED AT THIS TIME. CL IN REACH, SRX2. GUARD OUTSIDE OF ROOM. STAFF (NURSING AND R/T) ARE CONCERNED ABOUT THE FACT PT IS ON BIPAP AND NOT IN A NEGATIVE PREASURE ROOM WHICH IS [facility] PROTOCOL. WILL CNT. TO MONITOR.
--- NOTE | 2019-10-04 20:00 | NUR ---
PT HAS 4X4S AND TAPE AROUND LEFT WRIST. BLOOD IS SATURATING THE DRESSING AND STARTING TO GET ON HIS GOWN. HE STATED THAT THEY DIONICIO BLOOD THIS MORNING FROM THAT AREA. SATURATED DRESSING REMOVED AND NEW 4X4'S PLACED OVER PUNCTURE SITE AND COMPRESSION TAPE PLACED OVER THE 4X4S. WILL CONTINUE TO MONITOR. PT IS ALERT AND ORIENTED. HIS VOICE IS VERY QUIET. HE STATES HIS THROAT IS SORE. DECLINES MEDICATION FOR PAIN. HE VOIDED 500ML OF CLEAR YELLOW URINE IN URINAL. HE DENIES NEEDS AT THIS TIME. BED IS LOW AND CALL LIGHT IS WITHIN REACH.
[2019-10-05] VITALS (12 sets, daily range): BP systolic 103–113; BP diastolic 53–75
[2019-10-05 05:25] LABS: BASOPHILS 0.1 % (0-2); EOSINOPHILS 0.4 % (0-7); HEMOGLOBIN 12.7 g/dL (13.5-17.5); IMMATURE GRANULOCYTES 1.4 % (0-5); LYMPHOCYTES 22.5 % (15-50); MCH 29.1 pg (26.0-34.0); MCHC 32.6 g/dL (31.0-37.0); MCV 89.2 fL (80.0-100.0); MEAN PLATELET VOLUME 9.1 fL (7.4-10.4); MONOCYTES 10.9 % (2-11); NEUTROPHILS 64.7 % (40-80); PLATELET COUNT 459 10x3/uL (130-400); RBC 4.37 10x6/uL (4.20-6.10); RDW 13.7 % (11.5-14.5); WBC 16.9 10x3/uL (4.8-10.8)
--- NOTE | 2019-10-05 10:52 | NUR ---
PT IS ALERT AND ORIENTED, DIFFICULTY SPEAKING D/T SORE THROAT FROM TUBE REMOVAL. WHILE IN ROOM, PT WAS VISABLY SHIVERING AND PALE. STATED HE FELT BAD. TOOK VITAL SIGNS, 02 WAS 70S AND 80S, PT RESPIRATIONS 56 A MINUTE. CALLED RESPIRATORY AFTER PUTTING ON BIPAP AND PT SATS STILL DID NOT COME UP. INFORMED DR JIN, ADMINISTERED ONE TIME ATIVAN. PT WAS ABLE TO CALM DOWN SOME, THEN ADMINSITERED 2MG MORPHINE PER MD ORDER. RESPIRATIONS NOW 40/MIN. ON CONT. PULSE OX, BIPAP IN PLACE. CL IN REACH, SRX2, DOOR CLOSED, GUARD OUTSIDE DOOR. PT CLEAN AND DRY. LW BLED THROUGHOUT THE NIGHT, WRAPPED WITH COBAN. WILL CNT. TO MONITOR.
[2019-10-05 11:54] LABS: C-REACTIVE PROTEIN 2.5 mg/dL (0.0-0.9)
[2019-10-05 13:27] LABS: HIV 1 & 2- RAPID SCREEN NEGATIVE (NEGATIVE)
--- NOTE | 2019-10-05 14:10 | NUR ---
RECEIVED PT FROM [facility] ROOM 2123 VIA BED. PT DENIES ANY PAIN OR DISCOMFORT AT THIS TIME. VSS. BED IN LOWEST POSITION. CALL LIGHT IN REACH. WILL CONT TO MONITOR.
--- NOTE | 2019-10-05 15:00 | NUR ---
ASSESSMENT COMPLETED PER FLOWSHEET, SEE FLOWSHEET FOR INFORMATION. NO ACUTE NEEDS OR DISTRESS NOTED AT THIS TIME. VSS. WILL CONT TO MONITOR.
--- NOTE | 2019-10-05 17:00 | NUR ---
PT RESTING IN BED WITH EYES CLOSED. NO ACUTE NEEDS OR DISTRESS NOTED AT THIS TIME. VSS. WILL CONT TO MONITOR.
--- NOTE | 2019-10-05 19:15 | NUR ---
RECEIVED CARE OF PT, ASSESSMENT PER FLOWSHEET. PT WEAK BUT ORIENTED, ON 50% BIPAP, LUNG SOUNDS DIM IN ALL LOBES, PPP, GENERALIZED EDEMA NOTED, DENIES PAIN OR ANY NEEDS AT THIS TIME, VSS, CALL LIGHT IN REACH, GUARD AT DOORWAY.
--- NOTE | 2019-10-05 21:50 | NUR ---
PT RESTING IN BED WITH EYES CLOSED, VSS, CONT TO MONITOR.
--- NOTE | 2019-10-05 23:15 | NUR ---
REASSESSMENT PER FLOWSHEET, NO ACUTE CHANGES NOTED, VSS.
[2019-10-06] VITALS (24 sets, daily range): BP systolic 93–122; BP diastolic 47–71
--- NOTE | 2019-10-06 01:20 | NUR ---
PT RESTING IN BED WITH EYES CLOSED, REMAINS TACHYPNEIC, O2 SAT IN HIGH 90'S, VSS.
--- NOTE | 2019-10-06 05:46 | NUR ---
PT RESTING IN BED WITH EYES CLOSED, VSS, CONT POC. GUARD REMAINS AT DOORWAY.
--- NOTE | 2019-10-06 07:00 | NUR ---
PT REPORT RECEIVED FROM MANAGER GRAPHIC NURSE. NO ACUTE SIGNS OF DISTRESS NOTED. SHIFT ASSESSMENT COMPLETED. WILL CONTINUE TO MONITOR
--- NOTE | 2019-10-06 09:02 | NUR ---
PT RESTING IN BED. CURRENTLY ON BIPAP. NO SIGNS OF DISTRESS NOTED. WILL CONTINUE TO MONITOR
--- NOTE | 2019-10-06 11:00 | NUR ---
PT RESTING IN BED. NO COMPLAINTS NOTED. REASSESSMENT COMPELTED. WILL CONTINUE TO MONITOR
--- NOTE | 2019-10-06 12:23 | NUR ---
Nutrition follow-up: Pts diet advanced to regular mechanical soft with thin liquids BIPAP on at this itme Labs reviewed Wt: 187# RDN will monitor patients po intake and progress closely Following.
--- NOTE | 2019-10-06 13:01 | NUR ---
DR ROSE AT BEDSIDE. UPDATE GIVEN. NO NEW ORDERS AT THIS TIME.
--- NOTE | 2019-10-06 15:00 | NUR ---
PT REASSESSMENT COMPLETED. NO ACUTE SIGNS OF DISTRESS NOTED. PT ABLE TO SPEAK SOFTLY. DENIES ANY PAIN. WILL CONTINUE TO MONITOR
--- NOTE | 2019-10-06 17:30 | NUR ---
PT COMPLAINING OF PAIN IN NECK. PAIN MEDICINE GIVEN. WILL CONTINUE TO MONITOR
[2019-10-07] VITALS (24 sets, daily range): BP systolic 93–134; BP diastolic 55–77
[2019-10-07 05:25] LABS: BASOPHILS 0.1 % (0-2); EOSINOPHILS 0.1 % (0-7); HEMATOCRIT 40.4 % (42.0-54.0); HEMOGLOBIN 13.3 g/dL (13.5-17.5); IMMATURE GRANULOCYTES 0.8 % (0-5); MCH 29.2 pg (26.0-34.0); MCHC 32.9 g/dL (31.0-37.0); MCV 88.6 fL (80.0-100.0); MEAN PLATELET VOLUME 9.5 fL (7.4-10.4); MONOCYTES 11.5 % (2-11); NEUTROPHILS 74.5 % (40-80); RBC 4.56 10x6/uL (4.20-6.10); RDW 13.8 % (11.5-14.5); WBC 14.4 10x3/uL (4.8-10.8)
[2019-10-07 05:51] LABS: CALC OSMOLALITY 265 mosm/kg (275-300); CARBON DIOXIDE 25.6 mmol/L (21.0-32.0); CHLORIDE - SERUM 98 mmol/L (98-107); CREATININE - SERUM 0.8 mg/dL (0.6-1.3); GLUCOSE 92 mg/dL (74-106); MAGNESIUM - SERUM 2.1 mg/dL (1.8-2.4); PHOSPHOROUS 2.6 mg/dL (2.5-4.9); POTASSIUM - SERUM 3.8 mmol/L (3.5-5.1); SODIUM 133 mmol/L (136-145); UREA NITROGEN 12 mg/dL (7-18); eGFR NON AFRICAN AMERICAN > 90 mL/min (90-120)
[2019-10-07 06:08] LABS: PLATELET COUNT 263 10x3/uL (130-400)
--- NOTE | 2019-10-07 07:00 | NUR ---
PT REPORT RECEIVED FROM BARGE MASTER NURSE. NO ACUTE SIGNS OF DISTRESS NOTED. SHIFT ASSESSMENT COMPLETED. WILL CONTINUE TO MONITOR
--- NOTE | 2019-10-07 09:00 | NUR ---
PT RESTING IN BED. NO SIGNS OF DISTRESS NOTED. WILL CONTINUE TO MONITOR
--- NOTE | 2019-10-07 11:00 | NUR ---
DR ROSE AT BEDSIDE. UPDATE GIVEN. NO NEW ORDERS AT THIS TIME. WILL CONTINUE TO MONITOR
--- NOTE | 2019-10-07 13:00 | NUR ---
PT RESTING IN BED. STATED HE NEEDED TO HAVE BM. PLACED ON BEDPAN. NO BM. JUST GAS. WILL CONTINUE TO MONITOR
--- NOTE | 2019-10-07 15:04 | NUR ---
PT RESTING WITH EYES CLOSED. NO COMPLAINTS NOTED AT THIS TIME. REASSESSMENT COMPLETED. WILL CONTINUE TO MONITOR
--- NOTE | 2019-10-07 15:27 | NUR ---
SPOKE WITH PT FAMILY MEMBER. UPDATE GIVEN. ANSWERED QUESTIONS. WILL CONTINUE TO MONITOR
[2019-10-08] VITALS (22 sets, daily range): BP systolic 82–108; BP diastolic 40–70
[2019-10-08 07:31] LABS: BASOPHILS 0.1 % (0-2); EOSINOPHILS 0.1 % (0-7); HEMATOCRIT 38.9 % (42.0-54.0); HEMOGLOBIN 12.6 g/dL (13.5-17.5); IMMATURE GRANULOCYTES 0.5 % (0-5); LYMPHOCYTES 12.7 % (15-50); MCH 28.6 pg (26.0-34.0); MCHC 32.4 g/dL (31.0-37.0); MCV 88.4 fL (80.0-100.0); MEAN PLATELET VOLUME 9.4 fL (7.4-10.4); MONOCYTES 12.5 % (2-11); NEUTROPHILS 74.1 % (40-80); PLATELET COUNT 239 10x3/uL (130-400); RDW 13.8 % (11.5-14.5); WBC 12.9 10x3/uL (4.8-10.8)
[2019-10-08 08:09] LABS: CALC OSMOLALITY 273 mosm/kg (275-300); CALCIUM 8.8 mg/dL (8.5-10.1); CARBON DIOXIDE 26.4 mmol/L (21.0-32.0); CHLORIDE - SERUM 103 mmol/L (98-107); CREATININE - SERUM 0.6 mg/dL (0.6-1.3); GLUCOSE 92 mg/dL (74-106); POTASSIUM - SERUM 3.9 mmol/L (3.5-5.1); SODIUM 136 mmol/L (136-145); eGFR NON AFRICAN AMERICAN > 90 mL/min (90-120)
[2019-10-08 08:11] LABS: UREA NITROGEN 17 mg/dL (7-18)
--- NOTE | 2019-10-08 12:14 | MORECARE ---
CASE MANAGEMENT DISCHARGE SUMMARY PATIENT: CAPO VENTURA UNIT: [id number] ADM DATE: 09/21/19 AGE: 33 : 87 SEX: M ROOM/BED: D.2313 AUTHOR: DAMION VAZQUEZ PHYSICIAN: REFERRING PHYSICIAN: POPEYE CHAVEZ MD DATE OF SERVICE: 10/08/19 Discharge Plan Patient Name: CAPO VENTURA Facility: [facility]:[place] : 1985 Planned Disposition: Court\Law Enforcement Anticipated Discharge Date: Discharge Date: Expected LOS: Initial Reviewer: [email or web address] Initial Review Date: 09/21/2019 Generated: 10/08/19 1:13 pm DCP- Discharge Planning Updated by [email or web address]: Cecilia Ramsey on 09/23/19 7:[address] Patient Name: CAPO VENTURA Admission Status: ER Accout number: [id number] Admission Date: 09-21-2019 : 1985 Admission Diagnosis:COVID-19 Attending: LEONIDES Current LOS: 2 Anticipated DC Date: Planned Disposition: Court\Law Enforcement Primary Insurance: MEDICAID [facility] PEND[facility] Discharge Planning Comments: PATIENT IS AN ADC INMATE AT [facility]. PATIENT WILL RETURN THERE UPON DISCHARGE. GUARD AT BEDSIDE. Test Rack Operator: Cecilia Ramsey DCPIA - Discharge Planning Initial Assessment Updated by [email or web address]: Cecilia Ramsey on 09/23/19 8:54 pm * Is the patient Alert and Oriented? Yes * PCP ADC * Pharmacy ADC * Preadmission Environment Other * Facility Name [facility] * List name and contact numbers for known caregivers / representatives who currently or will assist patient after discharge: ADC * Verbal permission to speak to the caregivers and representatives has been obtained from the patient. N/A * Additional services required to return to the preadmission environment? No * Can the patient safely return to the preadmission environment? Yes * Has this patient been hospitalized within the prior 30 days at any hospital? No Last DP export: 09/23/19 8:02 pm Patient Name: CAPO VENTURA Page [id number] at 1214 All edits/amendments must be made on the electronic document DICTATION DATE: 10/08/191212 ENGINEER BYPRODUCT: JUAN 10/08/191212 RPT#: [id number] DC DATE: STATUS: ADM IN [facility] [address] [place] [address] END OF REPORT
--- NOTE | 2019-10-08 12:23 | NUR ---
Nutrition follow-up: Pt remains in isolation 2/2 Covid+; waved to me from room Diet: regular mechanical soft PO intake ~25% of meals; poor labs reviewed Wt: 187# Will order Boost with meals to increase kcal/protein intake RDN following.
--- NOTE | 2019-10-08 19:42 | NUR ---
patient report received. no acute distress. patient laying in bed. lights off. communicative. see assessment. denies pain at this time. asking when he will be transferred to another unit. educated on fall risk. will continue to monitor.
--- NOTE | 2019-10-08 21:57 | NUR ---
PATIENT PUT ON BED ZHOU. INSTRUCTED TO PRESS CALL LIGHT WHEN DONE.
--- NOTE | 2019-10-08 22:02 | NUR ---
gave report to roni
[2019-10-09 03:00] VITALS: BP 112/57
[2019-10-09 07:00] VITALS: BP 108/45
--- NOTE | 2019-10-09 07:00 | NUR ---
ASSESSMENT COMPLETE PER FLOWSHEET. VOICES NO CO AT TIME.
[2019-10-09 08:00] VITALS: BP 108/69
[2019-10-09 09:00] VITALS: BP 116/65
[2019-10-09 10:00] VITALS: BP 91/76
--- NOTE | 2019-10-09 10:56 | NUR ---
Nutrition follow-up: Pt receiving a regular mechanical soft diet Labs reviewed On nasal canula at this time Still in Covid isolation Pt wave to me from his bed Will provide food choices and honor food preferences. RDN following.
[2019-10-09 11:00] VITALS: BP 105/76
--- NOTE | 2019-10-09 14:00 | NUR ---
BATH GIVEN TRANSFER TO FLOOR.
--- NOTE | 2019-10-09 14:36 | NUR ---
PT TO ROOM FROM ICU WITH GUARD AT BEDSIDE. VOICE HOARSE. WATER GIVEN. URINAL AT BEDSIDE. OXYGEN AT 2LNC. CENTAL LINE TO RIGHT NECK NOTED.
--- NOTE | 2019-10-09 14:45 | NUR ---
REPORT CALLED TO ROMAN SALGADO.
--- NOTE | 2019-10-09 19:15 | NUR ---
PT IN BED, AAO X 2, RESP EVEN AND UNLABORED. NO DISTRESS NOTED, CL IN REACH, SR UP X 2.
[2019-10-10] VITALS (7 sets, daily range): BP systolic 100–119; BP diastolic 46–74
--- NOTE | 2019-10-10 04:36 | NUR ---
I have reviewed this patient and I concur with the Shift Assessment completed by the Licensed Practical Nurse today this shift.
[2019-10-10 09:48] LABS: HEMATOCRIT 39.7 % (42.0-54.0); HEMOGLOBIN 13.2 g/dL (13.5-17.5); MCH 29.3 pg (26.0-34.0); MCHC 33.2 g/dL (31.0-37.0); MCV 88.2 fL (80.0-100.0); MEAN PLATELET VOLUME 9.1 fL (7.4-10.4); RDW 14.1 % (11.5-14.5); WBC 17.6 10x3/uL (4.8-10.8)
[2019-10-10 09:50] LABS: PLATELET COUNT 173 10x3/uL (130-400)
[2019-10-10 10:05] LABS: ALBUMIN 2.7 g/dL (3.4-5.0); ALKALINE PHOSPHATASE 106 U/L (30-120); ALT (SGPT) 130 U/L (10-68); BILIRUBIN - TOTAL 0.74 mg/dL (0.2-1.3); CALC OSMOLALITY 266 mosm/kg (275-300); CALCIUM 9.2 mg/dL (8.5-10.1); CARBON DIOXIDE 24.8 mmol/L (21.0-32.0); CHLORIDE - SERUM 99 mmol/L (98-107); CREATININE - SERUM 0.8 mg/dL (0.6-1.3); GLUCOSE 133 mg/dL (74-106); POTASSIUM - SERUM 3.4 mmol/L (3.5-5.1); SODIUM 132 mmol/L (136-145); UREA NITROGEN 12 mg/dL (7-18); eGFR NON AFRICAN AMERICAN > 90 mL/min (90-120)
[2019-10-10 10:09] LABS: ANISOCYTOSIS OCC; EOSINOPHILS 1 % (0-7); LYMPHOCYTES 18 % (15-50); MONOCYTES 1 % (2-11); NEUTROPHILS 77 % (40-80); PLATELET ESTIMATE NORMAL
[2019-10-10 10:10] LABS: TEAR DROP CELLS OCC
[2019-10-10 19:04] LABS: BILIRUBIN NEGATIVE (NEGATIVE); GLUCOSE NEGATIVE (NEGATIVE); KETONE NEGATIVE (NEGATIVE); NITRITE NEGATIVE (NEGATIVE); UROBILINOGEN NORMAL (NORMAL)
--- NOTE | 2019-10-10 19:30 | NUR ---
PT IN BED, AAO X 2, RESP EVEN AND UNLABORED. NO DISTRESS NOTED, CL IN REACH, SR UP X 2.
[2019-10-11 04:52] VITALS: BP 111/68
[2019-10-11 05:11] LABS: BASOPHILS 0.2 % (0-2); EOSINOPHILS 0.1 % (0-7); HEMATOCRIT 37.1 % (42.0-54.0); HEMOGLOBIN 12.1 g/dL (13.5-17.5); IMMATURE GRANULOCYTES 2.2 % (0-5); LYMPHOCYTES 15.7 % (15-50); MCH 28.8 pg (26.0-34.0); MCHC 32.6 g/dL (31.0-37.0); MCV 88.3 fL (80.0-100.0); MEAN PLATELET VOLUME 9.6 fL (7.4-10.4); MONOCYTES 10.8 % (2-11); PLATELET COUNT 186 10x3/uL (130-400); RDW 14.2 % (11.5-14.5); WBC 17.1 10x3/uL (4.8-10.8)
[2019-10-11 05:26] LABS: CALC OSMOLALITY 272 mosm/kg (275-300); CARBON DIOXIDE 26.6 mmol/L (21.0-32.0); CHLORIDE - SERUM 103 mmol/L (98-107); GLUCOSE 101 mg/dL (74-106); POTASSIUM - SERUM 3.8 mmol/L (3.5-5.1); SODIUM 137 mmol/L (136-145); UREA NITROGEN 11 mg/dL (7-18)
[2019-10-11 05:28] LABS: CREATININE - SERUM 0.5 mg/dL (0.6-1.3); eGFR NON AFRICAN AMERICAN > 90 mL/min (90-120)
--- NOTE | 2019-10-11 09:10 | NUR ---
PT AWAKE AND ORIENTED WHEN I ENTERED ROOM. ASSISTED BY TECH PULLING PT UP IN BED. STATES HE HAS 8/10 RIGHT SHOULDER PAIN WHEN MOVED. OBVIOUS SIGNS OR PAIN WHEN MANIPULATED. PT IS SOFT SPOKEN D/T RECENT INTUBATIONS, REFUSES ROBITUSON STATING IT MAKES HIM PUKE. SAT PT ALL THE WAY UP FOR BREAKFAST, OBVIOUS DIFFICULTY SWALLOWING THIN LIQUIDS NOTED, WILL ATEMPT TO THICKNE SLIGHTLY FROM HERE ON OUT. ABLE TO MAKE MEDICATION CRUSHED IN APPLESAUCE. CL IN REACH,S RX2, NO COMPLAINT SOR CONCERNS STATED AT THIS TIME. CL IN REACH, SRX2
--- NOTE | 2019-10-11 16:52 | NUR ---
I have reviewed this patient and I concur with the Shift Assessment completed by the Licensed Practical Nurse today this shift.
--- NOTE | 2019-10-11 19:18 | NUR ---
RECEIVED REPORT, WILL ASSUME CARE OF PT, ASKING FOR WATER,WILL PROVIDE, PT DENIES ANY OTHER NEEDS AT THIS TIME, BED IS LOW, SRX2, CALL LIGHT IN REACH, WILL CONTINUE PLAN OF CARE
[2019-10-11 20:00] VITALS: BP 110/77
[2019-10-12 04:00] VITALS: BP 109/65
--- NOTE | 2019-10-12 05:15 | NUR ---
I have reviewed this patient and I concur with the Shift Assessment completed by the Licensed Practical Nurse today this shift.
[2019-10-12 06:23] LABS: HEMOGLOBIN 11.8 g/dL (13.5-17.5); MCH 28.9 pg (26.0-34.0); MCHC 32.8 g/dL (31.0-37.0); MEAN PLATELET VOLUME 10.1 fL (7.4-10.4); PLATELET COUNT 203 10x3/uL (130-400); RBC 4.09 10x6/uL (4.20-6.10); RDW 14.3 % (11.5-14.5); WBC 14.8 10x3/uL (4.8-10.8)
[2019-10-12 06:34] LABS: CALC OSMOLALITY 265 mosm/kg (275-300); CALCIUM 8.8 mg/dL (8.5-10.1); CARBON DIOXIDE 25.6 mmol/L (21.0-32.0); CHLORIDE - SERUM 101 mmol/L (98-107); CREATININE - SERUM 0.6 mg/dL (0.6-1.3); GLUCOSE 87 mg/dL (74-106); POTASSIUM - SERUM 3.9 mmol/L (3.5-5.1); SODIUM 134 mmol/L (136-145); UREA NITROGEN 10 mg/dL (7-18); eGFR NON AFRICAN AMERICAN > 90 mL/min (90-120)
[2019-10-12 06:48] LABS: EOSINOPHILS 2 % (0-7); LYMPHOCYTES 24 % (15-50); MONOCYTES 7 % (2-11); NEUTROPHILS 62 % (40-80); PLATELET ESTIMATE NORMAL
[2019-10-12 06:49] LABS: TEAR DROP CELLS OCC
--- NOTE | 2019-10-12 09:01 | NUR ---
PT AWKE AND ORIENTED, GUARD ASSISTED WITH LIFTING PT UP IN BED. STATES HIS SHOULDER FEELS BETTER TODAY BUT WHEN HE COUGHS HIS STOMACH AND LEGS HURT, LIKELY FROM PULLED MUSCLES. NO OCMPLAINTS OR CONCERNS AT THIS TIME. CL IN REACH, SRX2.
--- NOTE | 2019-10-12 10:13 | NUR ---
I have reviewed this patient and I concur with the Shift Assessment completed by the Licensed Practical Nurse today this shift.
[2019-10-12] MEDS ORDERED: SYMBICORT 16010.2 GM INH (14:18)
[2019-10-12] MEDS ORDERED: VENTOLIN HFA [SP8 GM INH (14:19)
[2019-10-12] MEDS ORDERED: MUCINEX600 MG PO (14:20)
--- NOTE | 2019-10-12 18:52 | NUR ---
PT AWAKE AND ORIENTED, ESCORTED OUT WITH AMBULANCE TO FACILITY.
--- NOTE | 2019-10-13 07:54 | MORECARE ---
CASE MANAGEMENT DISCHARGE SUMMARY PATIENT: CAPO VENTURA UNIT: [id number] ADM DATE: 09/21/19 AGE: 33 : 87 SEX: M ROOM/BED: D.2130 AUTHOR: DAMION VAZQUEZ PHYSICIAN: REFERRING PHYSICIAN: POPEYE CHAVEZ MD DATE OF SERVICE: 10/13/19 Discharge Plan Patient Name: CAPO VENTURA Facility: [facility]:[place] : 1985 Planned Disposition: Court\Law Enforcement Anticipated Discharge Date: Discharge Date: 10/12/2019 Expected LOS: Initial Reviewer: [email or web address] Initial Review Date: 09/21/2019 Generated: 10/13/19 8:53 am DCP- Discharge Planning Updated by [email or web address]: Cecilia Ramsey on 09/23/19 7:[address] Patient Name: CAPO VENTURA Admission Status: ER Accout number: [id number] Admission Date: 09-21-2019 : 1985 Admission Diagnosis:COVID-19 Attending: LEONIDES Current LOS: 2 Anticipated DC Date: Planned Disposition: Court\Law Enforcement Primary Insurance: MEDICAID RESIDENTIAL PENDING Discharge Planning Comments: PATIENT IS AN ADC INMATE AT [facility]. PATIENT WILL RETURN THERE UPON DISCHARGE. GUARD AT BEDSIDE. Bread Wrapper: Cecilia Ramsey DCPIA - Discharge Planning Initial Assessment Updated by [id number]: Cecilia Ramsey on 09/23/19 8:54 pm * Is the patient Alert and Oriented? Yes * PCP ADC * Pharmacy ADC * Preadmission Environment Other * Facility Name [facility] * List name and contact numbers for known caregivers / representatives who currently or will assist patient after discharge: ADC * Verbal permission to speak to the caregivers and representatives has been obtained from the patient. N/A * Additional services required to return to the preadmission environment? No * Can the patient safely return to the preadmission environment? Yes * Has this patient been hospitalized within the prior 30 days at any hospital? No Last DP export: 10/08/19 11:14 a Patient Name: CAPO VENTURA Page [phone] at 0754 All edits/amendments must be made on the electronic document DICTATION DATE: 10/13/19 0754 PUBLIC HEALTH STAFF NURSE: JUAN 10/13/19 0754 RPT#: [id number] DC DATE:10/12/19 STATUS: DIS IN [facility] [address] [place] [address] END OF REPORT
== END 2019-10-12 18:53 | DRG 207 ==
LOC: D.ER 02:34 → D.ICU 03:59 → D.M2 10-04 16:02 → D.ICU 10-05 13:41 → D.M2 10-09 14:14
PROVIDERS: Emergency Medicine; Family Medicine; Internal Medicine Pulmonary Disease; ADMIT Family Medicine; ATTEND Family Medicine
PROC: 5A1955Z Respiratory Ventilation, Greater than 96 Consecutive Hours (ICD-10-PCS; principal; 2019-09-23)
PROC: 0BH17EZ Insertion of Endotracheal Airway into Trachea, Via Natural or Artificial Opening (ICD-10-PCS; 2019-09-23)
PROC: 05HM33Z Insertion of Infusion Device into Right Internal Jugular Vein, Percutaneous Approach (ICD-10-PCS; 2019-09-25)
PROC: 03HY32Z Insertion of Monitoring Device into Upper Artery, Percutaneous Approach (ICD-10-PCS; 2019-09-25)
PROC: 4A133B1 Monitoring of Arterial Pressure, Peripheral, Percutaneous Approach (ICD-10-PCS; 2019-09-25)
PROC: 4A133J1 Monitoring of Arterial Pulse, Peripheral, Percutaneous Approach (ICD-10-PCS; 2019-09-25)
DX: U07.1 COVID-19 (principal); J96.01 Acute respiratory failure with hypoxia; J18.9 Pneumonia, unspecified organism; J96.02 Acute respiratory failure with hypercapnia; G72.81 Critical illness myopathy; D64.9 Anemia, unspecified; D72.829 Elevated white blood cell count, unspecified; J32.9 Chronic sinusitis, unspecified; F41.8 Other specified anxiety disorders; D47.3 Essential (hemorrhagic) thrombocythemia; R47.02 Dysphasia; J02.9 Acute pharyngitis, unspecified; R53.81 Other malaise; I95.9 Hypotension, unspecified

== ENCOUNTER 2019-10-17 13:27 | Inpatient (IN) | payer MEDICAID ==
[2019-10-17] VITALS (9 sets, daily range): BP systolic 111–124; BP diastolic 59–78
[~2019-10-17] VITALS: Ht 165.1 cm; Wt 85.3 kg
[~2019-10-17 13:27] MED LIST: BUSPAR 15 MG TA15 MG PO; KEPPRA1000 MG PO; MUCINEX600 MG PO; SYMBICORT 16010.2 GM INH; VENTOLIN HFA [SP8 GM INH
[2019-10-17 14:49] LABS: CALC OSMOLALITY 254 mosm/kg (275-300); CARBON DIOXIDE 26.9 mmol/L (21.0-32.0); CHLORIDE - SERUM 92 mmol/L (98-107); CREATININE - SERUM 0.7 mg/dL (0.6-1.3); GLUCOSE 116 mg/dL (74-106); POTASSIUM - SERUM 3.1 mmol/L (3.5-5.1); SODIUM 127 mmol/L (136-145); UREA NITROGEN 10 mg/dL (7-18); eGFR NON AFRICAN AMERICAN > 90 mL/min (90-120)
[2019-10-17 14:54] LABS: INR 1.12 (0.85-1.17); PROTIME 14.3 SECONDS (11.6-15.0)
[2019-10-17 15:05] LABS: HEMATOCRIT 33.5 % (42.0-54.0); MCH 28.4 pg (26.0-34.0); MCHC 32.8 g/dL (31.0-37.0); MCV 86.3 fL (80.0-100.0); MEAN PLATELET VOLUME 8.9 fL (7.4-10.4); PLATELET COUNT 405 10x3/uL (130-400); RBC 3.88 10x6/uL (4.20-6.10); RDW 13.4 % (11.5-14.5); WBC 24.9 10x3/uL (4.8-10.8)
[2019-10-17 15:29] LABS: ALBUMIN 2.2 g/dL (3.4-5.0); ALKALINE PHOSPHATASE 141 U/L (30-120); ALT (SGPT) 238 U/L (10-68); BILIRUBIN - TOTAL 1.26 mg/dL (0.2-1.3); PROTEIN - SERUM 8.1 g/dL (6.4-8.2)
[2019-10-17 15:30] LABS: FERRITIN 1750 ng/mL (3-244)
[2019-10-17 15:38] LABS: C-REACTIVE PROTEIN 22.4 mg/dL (0.0-0.9)
[2019-10-17 16:05] LABS: EOSINOPHILS 3 % (0-7); LYMPHOCYTES 13 % (15-50); MONOCYTES 4 % (2-11); NEUTROPHILS 80 % (40-80); PLATELET ESTIMATE NORMAL
[2019-10-17 18:07] LABS: MONO NEGATIVE (NEGATIVE)
--- NOTE | 2019-10-17 19:56 | NUR ---
PATIENT IS RESTING IN BED. HE IS ALERT AND ORENTED. HE IS VERY WEAK. HE IS ON NASAL CANULA. WE WILL CONTINUE TO MONITOR HIS RESPIRATORY STATUS.
[2019-10-18 01:18] VITALS: BP 130/79
--- NOTE | 2019-10-18 01:21 | NUR ---
LAB CALLED AND SAID BLOOD CULTURE WAS POSITIVE FOR GRAM + COCCI. PATIENT IS ON IV MERREM AND IV VANCO, SO I WAS ADVISED NOT TO CALL CRITICAL LAB.
[2019-10-18 04:08] VITALS: BP 119/74
--- NOTE | 2019-10-18 04:16 | NUR ---
PATIENT IS RESTING IN BED. HE PULLED OUT HIS IV. I WAS NOT ABLE TO START HIS IV MERREM. WE HAVE NOT BEEN ABLE TO GET IV ACCESS. THEY ARE SUPPOSED TO SEND SOMEONE FROM ICU TO TRY AND START HIS IV.
--- NOTE | 2019-10-18 04:36 | NUR ---
I TALKED TO NURSING VICE PRESIDENT AND PORTFOLIO MANAGER, AND SHE HAD ME CALL JENNIFER IN MICU. JENNIFER SAID NONE OF THE NURSES WERE ABLE TO PUT IN IV ON PATIENT WHEN HE WAS OVER IN ICU. I CALLED THE NURSING VICE PRESIDENT AND PORTFOLIO MANAGER BACK AND SHE SAID WE WILL HAVE TO CONSULT A SURGEON TO START A CENTRAL LINE.
[2019-10-18 08:45] VITALS: BP 125/82
[2019-10-18 10:54] LABS: BASOPHILS 0.1 % (0-2); EOSINOPHILS 0 % (0-7); HEMATOCRIT 33.6 % (42.0-54.0); IMMATURE GRANULOCYTES 1.6 % (0-5); LYMPHOCYTES 5.1 % (15-50); MCH 28.5 pg (26.0-34.0); MCHC 32.7 g/dL (31.0-37.0); MONOCYTES 3.6 % (2-11); NEUTROPHILS 89.6 % (40-80); PLATELET COUNT 373 10x3/uL (130-400); RBC 3.86 10x6/uL (4.20-6.10); RDW 13.4 % (11.5-14.5); WBC 22.9 10x3/uL (4.8-10.8)
[2019-10-18 11:02] LABS: CALC OSMOLALITY 270 mosm/kg (275-300); CALCIUM 8.9 mg/dL (8.5-10.1); CARBON DIOXIDE 30.4 mmol/L (21.0-32.0); CHLORIDE - SERUM 98 mmol/L (98-107); CREATININE - SERUM 0.6 mg/dL (0.6-1.3); GLUCOSE 174 mg/dL (74-106); PHOSPHOROUS 2.1 mg/dL (2.5-4.9); POTASSIUM - SERUM 3.6 mmol/L (3.5-5.1); SODIUM 134 mmol/L (136-145); UREA NITROGEN 10 mg/dL (7-18); eGFR NON AFRICAN AMERICAN > 90 mL/min (90-120)
[2019-10-18 11:56] VITALS: Ht 165.1 cm; Wt 85.3 kg
[2019-10-18 15:01] VITALS: BP 118/60
--- NOTE | 2019-10-18 16:44 | NUR ---
IVPB VANC HUNG AT THIS TIME. CVL DRESSING STILL BLEEDING, APPLIED A SECOND PRESSURE DRESSING AND APPLIED SANDBAG TO SITE. PT DENIES ANY NEEDS AT THIS TIME. CALL LIGHT IN REACH, NAD NOTED, WILL CONTINUE TO MONITOR.
[2019-10-18 20:56] VITALS: BP 136/88
[2019-10-18 23:01] VITALS: BP 130/85
[2019-10-19 04:30] VITALS: BP 123/80
[2019-10-19 08:17] LABS: HEMATOCRIT 32.2 % (42.0-54.0); HEMOGLOBIN 10.3 g/dL (13.5-17.5); MCH 27.9 pg (26.0-34.0); MCV 87.3 fL (80.0-100.0); MEAN PLATELET VOLUME 9.1 fL (7.4-10.4); PLATELET COUNT 410 10x3/uL (130-400); RBC 3.69 10x6/uL (4.20-6.10); RDW 13.5 % (11.5-14.5); WBC 21.8 10x3/uL (4.8-10.8)
[2019-10-19 08:27] LABS: CALC OSMOLALITY 270 mosm/kg (275-300); CALCIUM 8.7 mg/dL (8.5-10.1); CHLORIDE - SERUM 100 mmol/L (98-107); CREATININE - SERUM 0.7 mg/dL (0.6-1.3); GLUCOSE 130 mg/dL (74-106); MAGNESIUM - SERUM 2.1 mg/dL (1.8-2.4); PHOSPHOROUS 2.1 mg/dL (2.5-4.9); POTASSIUM - SERUM 3.3 mmol/L (3.5-5.1); SODIUM 135 mmol/L (136-145); UREA NITROGEN 10 mg/dL (7-18); eGFR NON AFRICAN AMERICAN > 90 mL/min (90-120)
[2019-10-19 09:27] LABS: LYMPHOCYTES 10 % (15-50); MONOCYTES 1 % (2-11); NEUTROPHILS 87 % (40-80)
[2019-10-19 09:28] LABS: PLATELET ESTIMATE INCREASED
--- NOTE | 2019-10-19 13:20 | NUR ---
HELPED PT ON BED ZHOU. PT WILL PRESS CALL LIGHT WHEN READY TO GET OFF BEDPAN. LT CVL INFUSING NS AT KVO PER DR. JIN.
[2019-10-19 13:59] LABS: BILIRUBIN NEGATIVE (NEGATIVE); GLUCOSE NEGATIVE (NEGATIVE); KETONE NEGATIVE (NEGATIVE); NITRITE NEGATIVE (NEGATIVE); UROBILINOGEN NORMAL (NORMAL)
[2019-10-19 14:01] LABS: BACTERIA FEW /hpf (NEGATIVE); RED CELLS - URINE 0-5 /hpf (0-5); WHITE CELLS - URINE 0-5 /hpf (NEGATIVE)
[2019-10-19 16:37] VITALS: BP 126/82
--- NOTE | 2019-10-19 16:41 | NUR ---
REPOSOTIONED PT IN BED, VITALS SIGNS STABLE, PT DENIES ANY OTHER NEEDS AT THIS TIME. CALL LIGHT IN REACH, NAD NOTED, WILL CONTINUE TO MONITOR.
--- NOTE | 2019-10-19 18:50 | NUR ---
REPORT RECEIVED, PT CARE ASSUMED. WROTE NAME ON BOARD. PT SITTING UP IN BED, WATCHING TV, AAOX4. URINAL EMPTIED, 450 ML YELLOW URINE NOTED. DENIES ANY OTHER NEEDS OR PAIN AT THIS TIME. BED IN LOWEST, SRX2, CALL LIGHT WITHIN REACH, OFFICER AT BEDSIDE. WILL CTM.
[2019-10-19 23:38] VITALS: BP 128/77
[2019-10-20 04:19] VITALS: BP 120/81
[2019-10-20 06:56] LABS: CALC OSMOLALITY 267 mosm/kg (275-300); CALCIUM 9.1 mg/dL (8.5-10.1); CARBON DIOXIDE 32.6 mmol/L (21.0-32.0); CHLORIDE - SERUM 99 mmol/L (98-107); CREATININE - SERUM 0.7 mg/dL (0.6-1.3); GLUCOSE 94 mg/dL (74-106); MAGNESIUM - SERUM 2.1 mg/dL (1.8-2.4); POTASSIUM - SERUM 3.6 mmol/L (3.5-5.1); SODIUM 135 mmol/L (136-145); eGFR NON AFRICAN AMERICAN > 90 mL/min (90-120)
[2019-10-20 06:57] LABS: PHOSPHOROUS 3.1 mg/dL (2.5-4.9); UREA NITROGEN 7 mg/dL (7-18)
[2019-10-20 07:40] LABS: BASOPHILS 0.1 % (0-2); EOSINOPHILS 0.2 % (0-7); HEMATOCRIT 32.2 % (42.0-54.0); HEMOGLOBIN 10.4 g/dL (13.5-17.5); IMMATURE GRANULOCYTES 3.3 % (0-5); LYMPHOCYTES 17.5 % (15-50); MCH 28.4 pg (26.0-34.0); MCHC 32.3 g/dL (31.0-37.0); MEAN PLATELET VOLUME 9.2 fL (7.4-10.4); MONOCYTES 11.1 % (2-11); NEUTROPHILS 67.8 % (40-80); PLATELET COUNT 409 10x3/uL (130-400); RBC 3.66 10x6/uL (4.20-6.10); RDW 13.7 % (11.5-14.5); WBC 17.7 10x3/uL (4.8-10.8)
[2019-10-20 08:32] VITALS: BP 122/77
--- NOTE | 2019-10-20 12:33 | NUR ---
COVID 19 TEST DONE AND TAKEN TO LAB. IVPB MERREM HUNG AT THIS TIME AND EMPTIED PT'S URINAL, PT DENIES ANY OTHER NEEDS AT THIS TIME. CALL LIGHT IN REACH, NAD NOTED, WILL CONTINUE TO MONITOR.
[2019-10-20 14:41] VITALS: BP 121/70
--- NOTE | 2019-10-20 17:03 | NUR ---
PT MOVED TO 2100 VIA BED.
--- NOTE | 2019-10-20 19:00 | NUR ---
REPORT RECEIVED, WILL CONTINUE POC. PATIENT IS AAOX4, LYING IN SEMI-FOWLERS POSITION. NO S/S OF DISTRESS OBSERVED, RR EVEN AND UNLABORED ON 3.5L O2 VIA NC. PATIENT DENIES NEEDS AT THIS TIME. CL IN REACH, BED LOCKED AND LOWERED. PUI ISOLATION PRECAUTIONS FOLLOWED.
--- NOTE | 2019-10-20 21:11 | NUR ---
RHINA HINTON APN PAGED AT THIS TIME DUE TO PT MORPHINE FALLING OFF MAR IN PHARMACY.
--- NOTE | 2019-10-20 21:12 | NUR ---
RHINA BUI APN RETURNED PAGE AND STATED TO RENEW PT IV PRN MORPHINE.
--- NOTE | 2019-10-20 23:10 | NUR ---
RECEIVED CALL FROM CANDY IN THE LAB, PATIENTS COVID TEST IS POSITIVE.
--- NOTE | 2019-10-21 04:12 | NUR ---
I have reviewed this patient and I concur with the Shift Assessment completed by the Licensed Practical Nurse today this shift.
[2019-10-21 07:14] LABS: BASOPHILS 0.2 % (0-2); EOSINOPHILS 0.5 % (0-7); HEMATOCRIT 31.5 % (42.0-54.0); HEMOGLOBIN 9.8 g/dL (13.5-17.5); IMMATURE GRANULOCYTES 5.2 % (0-5); MCH 27.6 pg (26.0-34.0); MCHC 31.1 g/dL (31.0-37.0); MCV 88.7 fL (80.0-100.0); MEAN PLATELET VOLUME 8.8 fL (7.4-10.4); MONOCYTES 9.5 % (2-11); NEUTROPHILS 64.6 % (40-80); PLATELET COUNT 419 10x3/uL (130-400); RBC 3.55 10x6/uL (4.20-6.10); RDW 13.6 % (11.5-14.5)
--- NOTE | 2019-10-21 07:30 | NUR ---
REPORT RECIEVED. PT SITTING SEMI FOWLERS IN BED. RR EVEN AND UNLABORED ON RA. PT HAS A LEFT CHEST CVL INFUSING NS@30. BED LOCKED AND IN LOWEST POSITION, CALL LIGHT WITHIN REACH. WILL CTM.
[2019-10-21 07:39] LABS: ALBUMIN 1.9 g/dL (3.4-5.0); ALKALINE PHOSPHATASE 118 U/L (30-120); ALT (SGPT) 256 U/L (10-68); BILIRUBIN - DIRECT 0.12 mg/dL (0.00-0.30); BILIRUBIN - INDIRECT 0.35 mg/dL (0.00-1.00); BILIRUBIN - TOTAL 0.47 mg/dL (0.2-1.3); C-REACTIVE PROTEIN 9.7 mg/dL (0.0-0.9); CALC OSMOLALITY 267 mosm/kg (275-300); CALCIUM 8.7 mg/dL (8.5-10.1); CARBON DIOXIDE 31.6 mmol/L (21.0-32.0); CHLORIDE - SERUM 100 mmol/L (98-107); CREATININE - SERUM 0.8 mg/dL (0.6-1.3); GLUCOSE 93 mg/dL (74-106); MAGNESIUM - SERUM 2.1 mg/dL (1.8-2.4); PHOSPHOROUS 3.1 mg/dL (2.5-4.9); POTASSIUM - SERUM 3.6 mmol/L (3.5-5.1); SODIUM 135 mmol/L (136-145); UREA NITROGEN 8 mg/dL (7-18); eGFR NON AFRICAN AMERICAN > 90 mL/min (90-120)
--- NOTE | 2019-10-21 08:51 | MORECARE ---
CASE MANAGEMENT DISCHARGE SUMMARY PATIENT: CAPO VENTURA UNIT: [id number] ADM DATE: 10/17/19 AGE: 33 : 87 SEX: M ROOM/BED: D.2101 AUTHOR: DAMION VAZQUEZ PHYSICIAN: REFERRING PHYSICIAN: DUSTY NEWTON MD DATE OF SERVICE: 10/21/19 Discharge Plan Patient Name: CAPO VENTURA [facility] [facility] 1985 Planned Disposition: Court\Law Enforcement Anticipated Discharge Date: Discharge Date: Expected LOS: Initial Reviewer: [email or web address] Initial Review Date: 10/17/2019 Generated: 10/21/19 9:51 am Patient Name: CAPO VENTURA Page [id number] at 0851 All edits/amendments must be made on the electronic document DICTATION DATE: 10/21/19 0851 PAVING FOREMAN: JUAN 10/21/19 0851 RPT#: [id number] DC DATE: STATUS: ADM IN [facility] [address] [place] [address] END OF REPORT
[2019-10-21 08:53] VITALS: BP 115/73
[2019-10-21 10:12] LABS: EBV - NUCLEAR ANTIGEN AB IGG <18.0 U/mL (0.0-17.9); EBV VIRAL CAPSID AB IGG <18.0 U/mL (0.0-17.9); EBV VIRAL CAPSID AB IGM <36.0 U/mL (0.0-35.9)
[2019-10-21 10:25] LABS: % SATURATION 13 % (15-55); IRON 16 ug/dl (35-150); TOTAL IRON BIND CAPACITY 120 ug/dl (260-445); UNSAT IRON BIND CAPACITY 104 ug/dl (150-375)
[2019-10-21 10:52] VITALS: BP 107/70
--- NOTE | 2019-10-21 12:22 | NUR ---
Nutrition Follow-up: Pt in droplet isolation; covid-19 +. Chart reviewed. Diet: Regular PO intake: 54% avg x 6 meals Wt: 188# (10/17) Last BM: 10/15 Labs noted: Na 135, Alb 1.9 Meds noted: Colace, Pepcid, NS @ KVO, electrolyte protocol -Encourage PO intake and honor food preferences within diet restrictions. -Offer nutrition supplements. -Monitor wt; noted daily wts ordered. -RD following.
[2019-10-21 15:47] VITALS: BP 120/68
--- NOTE | 2019-10-21 18:38 | NUR ---
I have reviewed this patient and I concur with the Shift Assessment completed by the Licensed Practical Nurse today this shift.
--- NOTE | 2019-10-21 19:00 | NUR ---
REPORT RECEIVED, WILL CONTINUE POC. PATIENT IS AAOX4, LYING IN SEMI-FOWLERS POSITION. NO S/S OF DISTRESS OBSERVED, RR EVEN AND UNLABORED ON 3L O2 VIA NC. PATIENT IS ON DROPLET ISOLATION FOR COVID-19. PATIENT DENIES NEEDS AT THIS TIME. CL IN REACH, BED LOCKED AND LOWERED. SHACKLES ON PATIENTS ANKLES, MINIMAL REDNESS TO LEFT ANKLE, ELEVATED FEET. GUARD IN ANTE ROOM. WILL CTM.
--- NOTE | 2019-10-21 20:05 | NUR ---
GIVEN 2 PUFFS ALBUTEROL IN ERROR. WRONG MDI IN PATIENTS BAG. CORRECTED. NO ILL EFFECTS.
[2019-10-22 04:00] VITALS: BP 109/72
--- NOTE | 2019-10-22 04:03 | NUR ---
I have reviewed this patient and I concur with the Shift Assessment completed by the Licensed Practical Nurse today this shift.
[2019-10-22 07:23] LABS: CALC OSMOLALITY 267 mosm/kg (275-300); CALCIUM 9.1 mg/dL (8.5-10.1); CARBON DIOXIDE 32.1 mmol/L (21.0-32.0); CHLORIDE - SERUM 101 mmol/L (98-107); CREATININE - SERUM 0.7 mg/dL (0.6-1.3); GLUCOSE 87 mg/dL (74-106); MAGNESIUM - SERUM 2.2 mg/dL (1.8-2.4); PHOSPHOROUS 3.2 mg/dL (2.5-4.9); POTASSIUM - SERUM 3.7 mmol/L (3.5-5.1); SODIUM 135 mmol/L (136-145); UREA NITROGEN 9 mg/dL (7-18); eGFR NON AFRICAN AMERICAN > 90 mL/min (90-120)
--- NOTE | 2019-10-22 07:30 | NUR ---
REPORT RECIEVED. PT SITTING UP IN BED, RR EVEN AND UNLABORED ON 3L. PT HAS A L CHEST CVL INFUSING NS @ 15. BED LOCKED AND IN LOWEST POSITION, CALL LIGHT WITHIN REACH. WILL CTM
[2019-10-22 07:46] LABS: HEMATOCRIT 31.7 % (42.0-54.0); HEMOGLOBIN 9.9 g/dL (13.5-17.5); MCH 28.1 pg (26.0-34.0); MCHC 31.2 g/dL (31.0-37.0); MCV 90.1 fL (80.0-100.0); MEAN PLATELET VOLUME 9.2 fL (7.4-10.4); PLATELET COUNT 431 10x3/uL (130-400); RBC 3.52 10x6/uL (4.20-6.10); WBC 18.9 10x3/uL (4.8-10.8)
[2019-10-22 08:39] LABS: ANISOCYTOSIS OCC; LYMPHOCYTES 14 % (15-50); MONOCYTES 8 % (2-11); NEUTROPHILS 75 % (40-80); PLATELET ESTIMATE INCREASED; ROULEAUX OCC
[2019-10-22 08:40] LABS: TEAR DROP CELLS OCC
[2019-10-22 09:11] VITALS: BP 118/61
[2019-10-22 14:02] VITALS: BP 131/77
[2019-10-22 20:00] VITALS: BP 115/68
[2019-10-23] VITALS: BP 122/72
--- NOTE | 2019-10-23 03:51 | NUR ---
I have reviewed this patient and I concur with the Shift Assessment completed by the Licensed Practical Nurse today this shift.
[2019-10-23 04:00] VITALS: BP 116/70
[2019-10-23 04:30] LABS: BASOPHILS 0.3 % (0-2); HEMATOCRIT 30.6 % (42.0-54.0); HEMOGLOBIN 9.6 g/dL (13.5-17.5); IMMATURE GRANULOCYTES 6.9 % (0-5); LYMPHOCYTES 23.5 % (15-50); MCHC 31.4 g/dL (31.0-37.0); MCV 89.2 fL (80.0-100.0); MEAN PLATELET VOLUME 8.7 fL (7.4-10.4); MONOCYTES 12.6 % (2-11); NEUTROPHILS 55.7 % (40-80); PLATELET COUNT 439 10x3/uL (130-400); RBC 3.43 10x6/uL (4.20-6.10); RDW 14.1 % (11.5-14.5); WBC 16.3 10x3/uL (4.8-10.8)
[2019-10-23 04:56] LABS: CALC OSMOLALITY 271 mosm/kg (275-300); CALCIUM 8.1 mg/dL (8.5-10.1); CARBON DIOXIDE 32.7 mmol/L (21.0-32.0); CHLORIDE - SERUM 103 mmol/L (98-107); CREATININE - SERUM 0.6 mg/dL (0.6-1.3); GLUCOSE 85 mg/dL (74-106); MAGNESIUM - SERUM 2.1 mg/dL (1.8-2.4); PHOSPHOROUS 3.7 mg/dL (2.5-4.9); POTASSIUM - SERUM 4.1 mmol/L (3.5-5.1); SODIUM 137 mmol/L (136-145); UREA NITROGEN 9 mg/dL (7-18); eGFR NON AFRICAN AMERICAN > 90 mL/min (90-120)
--- NOTE | 2019-10-23 07:30 | NUR ---
REPORT RECIEVED. PT SITTING SEMI FOWLERS IN BED. RR EVEN AND UNLABORED ON 3L NC. HE HAS A LEFT CHEST CVL INFUSING NS @15. BED LOCKED AND IN LOWEST POSITION, CALL LIGHT WITHIN REACH. WILL CTM
[2019-10-23 08:51] VITALS: BP 133/77
--- NOTE | 2019-10-23 09:59 | NUR ---
Nutrition Follow-up: NPO for SINTIA. Nursing reports pt has been eating well. Wt: 188# (10/17) Labs noted: Ca 8.1 Meds noted: Miralax, Colace, Pepcid, NS @ KVO -Rec resume diet as medically feasible following procedure. -Monitor wt; noted daily wts ordered. -RD following.
--- NOTE | 2019-10-23 18:07 | NUR ---
I have reviewed this patient and I concur with the Shift Assessment completed by the Licensed Practical Nurse today this shift.
[2019-10-24 07:09] LABS: ALBUMIN 1.9 g/dL (3.4-5.0); ALKALINE PHOSPHATASE 102 U/L (30-120); ALT (SGPT) 138 U/L (10-68); BILIRUBIN - TOTAL 0.34 mg/dL (0.2-1.3); CALC OSMOLALITY 264 mosm/kg (275-300); CALCIUM 8.4 mg/dL (8.5-10.1); CHLORIDE - SERUM 98 mmol/L (98-107); GLUCOSE 100 mg/dL (74-106); POTASSIUM - SERUM 3.8 mmol/L (3.5-5.1); PROTEIN - SERUM 7.3 g/dL (6.4-8.2); SODIUM 133 mmol/L (136-145); UREA NITROGEN 10 mg/dL (7-18); eGFR NON AFRICAN AMERICAN > 90 mL/min (90-120)
[2019-10-24 07:13] LABS: CREATININE - SERUM 0.8 mg/dL (0.6-1.3)
[2019-10-24 07:32] VITALS: BP 119/73
--- NOTE | 2019-10-24 08:00 | NUR ---
PT USES URINAL, 400 ML.
[2019-10-24 09:24] LABS: HEMOGLOBIN 9.3 g/dL (13.5-17.5); MCH 27.8 pg (26.0-34.0); MCV 89.6 fL (80.0-100.0); MEAN PLATELET VOLUME 8.9 fL (7.4-10.4); PLATELET COUNT 442 10x3/uL (130-400); RBC 3.35 10x6/uL (4.20-6.10); RDW 14.2 % (11.5-14.5); WBC 17.3 10x3/uL (4.8-10.8)
[2019-10-24 09:51] LABS: LYMPHOCYTES 14 % (15-50); MONOCYTES 9 % (2-11); NEUTROPHILS 61 % (40-80); PLATELET ESTIMATE INCREASED
[2019-10-24 10:33] VITALS: BP 129/73
--- NOTE | 2019-10-24 11:30 | EC ---
PATIENT:CAPO VENTURA DATE OF SERVICE: 10/17/19 SEX: M MEDICAL RECORD: [id number] DATE OF : [birth year] LOCATION:D.M2 D.210 AGE OF PATIENT: 33 ADMISSION DATE: 10/17/19 REFERRING PHYSICIAN: INTERPRETING PHYSICIAN: KALEN MORROW MD ECHOCARDIOGRAM REPORT ECHO CHARGES 4 ECHO COMPLETE Date: 10/19/19 CLINICAL DIAGNOSIS: STAPH - R/O VEGETATION ECHOCARDIOGRAPHIC MEASUREMENTS (adult normal given) AC root (d.<3.7cm) 3.3 cm LV Septum d (<1.2 cm> 1.0 cm Valve Excursion 2.2 cm LV Septum (systole) 1.4 cm Left Atria (s.<4.0cm> 2.7 cm LVPW d(<1.2cm) 0.9 cm RV (d.<2.3cm) 1.9 cm LVPW (sytole) 1.5 cm LV diastole(<5.6CM) 4.9 cm MV E-F(>70mm/sec) cm LV systole 3.2 cm LVOT Diameter 2.1 cm MV exc.(>10mm) cm Est.ejection fraction (50-75%) % DOPPLER: LVIT cm/sec A 77.0 cm/sec E 118 cm/sec LA cm/sec RVSP 26.3 mmHg LVOT 96.0 cm/sec AOP1/2T m/s Asc. Ao 118 cm/sec RVOT 78.0 cm/sec RA cm/sec PA 89.0 cm/sec AV Gradient Peak 5.6 mmHg AV Mean 2.3 mmHg AV Area 2.2 cm MV Gradient Peak 6.5 mmHg MV Mean 3.0 mmHg MV Area cm COMMENTS: Mechanical Door Repairer: 1 BENY PANTOJADSOE Hog Handler: 3 Dr. George TAPE# PACS Pericardial Effusion Y DATE OF SERVICE: Adequate 2D, color flow imaging, spectral Doppler, and M-Mode. No LVH. LV internal dimension is normal. Wall motion is normal. EF is greater than or equal to 55%. Aortic valve is tricuspid. No evidence of stenosis by Doppler interrogation. Left atrium is normal 3.7 cm. 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 Could consider transesophageal echo if clinically indicated. Trace TR. ECHOCARDIOGRAM REPORT [id number] CAPO VENTURA TRANSINT:[id number] Voice Confirmation ID: [id number] DOCUMENT ID: [id number] KALEN MORROW MD at 1130 CC: [id number] DICTATION DATE: 10/20/19 1300 BODY LINE FINISHER: 10/20/19 1603 ADM IN [place] [id number] [place] [address]
--- NOTE | 2019-10-24 11:30 | TEE ---
PATIENT:CAPO VENTURA MEDICAL RECORD: [id number] LOCATION:D.M2 D.210 AGE OF PATIENT: 33 ADMISSION DATE: 10/17/19 SEX: M REFERRING PHYSICIAN: INTERPRETING PHYSICIAN: KALEN MORROW MD TRANSESOPHAGEAL ECHOCARDIOGRAM Date: 10/23/19 SINTIA CHARGE Y INDICATIONS: VEG ON MV PREMEDICATIONS: PATIENT'S RESPONSE PROCEDURE DOPPLER MEASUREMENTS: LVIT LA PA 89.0 RA LVOT 96.0 RVOT 78.0 Asc. Ao 118 AV Gradient Peak 5.6 AV Mean 2.3 AV Area 2.2 MV Gradient Peak 6.5 MV Mean 3.0 MV Area INTERPRETATION: Doppler: 2-D: COLOR FLOW DOPPLER NORMAL SALINE STUDY: MISCELLANOUS: DIAGNOSIS: PLAN: Superintendent Meters:3 Dr. George Ink Printer: Will CHEN COMMENTS: DATE OF SERVICE: 10/23/2019 DESCRIPTION OF PROCEDURE: After general sedation via TIVA via anesthesia, transesophageal Omniplane probe was placed into the distal esophagus and proximal stomach without difficulty. FINDINGS: No LVH. LV internal dimension is normal. Wall motion is normal. EF is greater than or equal to 55%. Aortic valve is tricuspid with good valve excursion. No significant AI. Left atrium appears normal. Left atrial TRANSESOPHAGEAL ECHOCARDIOGRAM REPORT [id number] CAPO VENTURA appendage appeared normal. Good contractility. Mitral valve is well visualized with approximately 2 cm vegetation on the anterior leaflet and moderate MR. This appears to be through the point of coaptation and not through the valve itself. Right-sided chamber is grossly normal. Trivial TR. During the procedure, the patient was monitored continuously with pulse oximetry, telemetry, and noninvasive blood pressure monitoring. NTS:[id number] Voice Confirmation ID: [id number] DOCUMENT ID: [id number] at [id number] CC: [id number] DICTATION DATE: 10/23/19 1347 AIR INTERCEPT CONTROLLER SUPERVISOR: 10/24/19 0247 ADM IN [facility] [address] [id number]
[2019-10-24 14:33] VITALS: BP 118/63
--- NOTE | 2019-10-24 14:54 | NUR ---
PT PAIN CONTROLLED WITH IV PAIN MEDS, SEE EMAR.
--- NOTE | 2019-10-25 03:42 | NUR ---
I have reviewed this patient and I concur with the Shift Assessment completed by the Licensed Practical Nurse today this shift.
[2019-10-25 05:32] LABS: BASOPHILS 0.2 % (0-2); EOSINOPHILS 0.7 % (0-7); HEMATOCRIT 27.4 % (42.0-54.0); HEMOGLOBIN 8.4 g/dL (13.5-17.5); MCH 27.7 pg (26.0-34.0); MCHC 30.7 g/dL (31.0-37.0); MCV 90.4 fL (80.0-100.0); MEAN PLATELET VOLUME 8.5 fL (7.4-10.4); MONOCYTES 12.4 % (2-11); NEUTROPHILS 57.7 % (40-80); PLATELET COUNT 452 10x3/uL (130-400); RBC 3.03 10x6/uL (4.20-6.10); RDW 14.2 % (11.5-14.5); WBC 16.6 10x3/uL (4.8-10.8)
[2019-10-25 05:59] LABS: ALKALINE PHOSPHATASE 102 U/L (30-120); ALT (SGPT) 122 U/L (10-68); BILIRUBIN - TOTAL 0.25 mg/dL (0.2-1.3); CALC OSMOLALITY 268 mosm/kg (275-300); CALCIUM 8.8 mg/dL (8.5-10.1); CHLORIDE - SERUM 100 mmol/L (98-107); CREATININE - SERUM 0.7 mg/dL (0.6-1.3); GLUCOSE 97 mg/dL (74-106); PROTEIN - SERUM 7.5 g/dL (6.4-8.2); SODIUM 135 mmol/L (136-145); UREA NITROGEN 9 mg/dL (7-18); eGFR NON AFRICAN AMERICAN > 90 mL/min (90-120)
[2019-10-25 09:00] VITALS: BP 108/52
[2019-10-25 12:47] VITALS: BP 111/72; BP 129/74
[2019-10-25 17:18] VITALS: BP 111/71
[2019-10-25 20:00] VITALS: BP 121/76
[2019-10-26 03:55] VITALS: BP 116/63
[2019-10-26 05:19] LABS: BASOPHILS 0.3 % (0-2); EOSINOPHILS 0.7 % (0-7); HEMOGLOBIN 9.5 g/dL (13.5-17.5); IMMATURE GRANULOCYTES 6.6 % (0-5); LYMPHOCYTES 22.1 % (15-50); MCH 27.6 pg (26.0-34.0); MCHC 30.6 g/dL (31.0-37.0); MCV 90.1 fL (80.0-100.0); MEAN PLATELET VOLUME 8.3 fL (7.4-10.4); MONOCYTES 10.3 % (2-11); PLATELET COUNT 447 10x3/uL (130-400); RBC 3.44 10x6/uL (4.20-6.10); WBC 15.9 10x3/uL (4.8-10.8)
[2019-10-26 05:38] LABS: ALBUMIN 2.1 g/dL (3.4-5.0); ALKALINE PHOSPHATASE 102 U/L (30-120); ALT (SGPT) 113 U/L (10-68); CALC OSMOLALITY 276 mosm/kg (275-300); CARBON DIOXIDE 29.3 mmol/L (21.0-32.0); CHLORIDE - SERUM 101 mmol/L (98-107); CREATININE - SERUM 0.9 mg/dL (0.6-1.3); GLUCOSE 149 mg/dL (74-106); POTASSIUM - SERUM 3.8 mmol/L (3.5-5.1); PROTEIN - SERUM 7.6 g/dL (6.4-8.2); SODIUM 138 mmol/L (136-145); UREA NITROGEN 7 mg/dL (7-18); eGFR NON AFRICAN AMERICAN > 90 mL/min (90-120)
--- NOTE | 2019-10-26 07:34 | NUR ---
PT RECEIVED AWAKE AND ALERT, ASKING FOR PAIN MEDS. MORPHINE GIVEN. VITALS STABLE WITH LOW GRADE TEMP. ENCOURAGED DEEP BREATHING AND ACTIVITY.
[2019-10-26 10:36] VITALS: BP 113/68
[2019-10-26 12:23] VITALS: BP 121/70
[2019-10-26 15:44] VITALS: BP 116/65
[2019-10-26 21:28] VITALS: BP 114/64
[2019-10-27 00:28] VITALS: BP 119/72
[2019-10-27 05:50] VITALS: BP 114/69
[2019-10-27 09:39] VITALS: BP 105/75
[2019-10-27] MEDS ORDERED: VANCOMYCIN 1 GM/1 G1 IV (11:04)
--- NOTE | 2019-10-27 11:18 | MORECARE ---
CASE MANAGEMENT DISCHARGE SUMMARY PATIENT: CAPO VENTURA UNIT: [id number] ADM DATE: 10/17/19 AGE: 33 : 86 SEX: M ROOM/BED: D.2101 AUTHOR: DAMION VAZQUEZ PHYSICIAN: REFERRING PHYSICIAN: DUSTY NEWTON MD DATE OF SERVICE: 10/27/19 Discharge Plan Patient Name: CAPO VENTURA [facility] : 1985 Planned Disposition: Court\Law Enforcement Anticipated Discharge Date: Discharge Date: Expected LOS: Initial Reviewer: [email or web address] Initial Review Date: 10/17/2019 Generated: 10/27/19 12:17 pm Last DP export: 10/21/19 7:51 am Patient Name: CAPO VENTURA Page [id number] at 1118 All edits/amendments must be made on the electronic document DICTATION DATE: 10/27/19 1117 SPACE STUDIES FACULTY MEMBER: JUAN 10/27/19 1117 RPT#: [id number] DC DATE: STATUS: ADM IN [facility] [address] [place] [address] END OF REPORT
--- NOTE | 2019-10-27 11:26 | MORECARE ---
CASE MANAGEMENT DISCHARGE SUMMARY PATIENT: CAPO VENTURA UNIT: [id number] ADM DATE: 10/17/19 AGE: 33 : 86 SEX: M ROOM/BED: D.2101 AUTHOR: DAMION VAZQUEZ PHYSICIAN: REFERRING PHYSICIAN: DUSTY NEWTON MD DATE OF SERVICE: 10/27/19 Discharge Plan Patient Name: CAPO VENTURA Facility: [facility]:[place] : 1985 Planned Disposition: Court\Law Enforcement Anticipated Discharge Date: 10/27/19 Discharge Date: Expected LOS: 10 Initial Reviewer: [email or web address] Initial Review Date: 10/17/2019 Generated: 10/27/19 12:25 pm Comments DCP- Discharge Planning Updated by [email or web address]: Beti Domingo on 10/27/19 10:[address] Patient is a client of the [facility] and will return there upon DC. CM notified the patient's guard that he will be returning to [facility] in [place] today, pending P2P, ambulance transport time and chaser car. Last DP export: 10/27/19 10:18 a Patient Name: CAPO VENTURA Page 48167 at 1126 All edits/amendments must be made on the electronic document DICTATION DATE: 10/27/19 1126 COVER MAT MACHINE OPERATOR: JUAN 10/27/19 1126 RPT#: [id number] DC DATE: STATUS: ADM IN [facility] [address] [place] [address] END OF REPORT
[2019-10-27 12:42] VITALS: BP 127/79
--- NOTE | 2019-10-27 16:07 | MORECARE ---
CASE MANAGEMENT DISCHARGE SUMMARY PATIENT: CAPO VENTURA UNIT: [id number] ADM DATE: 10/17/19 AGE: 33 : 86 SEX: M ROOM/BED: D.2101 AUTHOR: DAMION VAZQUEZ PHYSICIAN: REFERRING PHYSICIAN: DUSTY NEWTON MD DATE OF SERVICE: 10/27/19 Discharge Plan Patient Name: CAPO VENTURA [facility] : 1985 Planned Disposition: Court\Law Enforcement Anticipated Discharge Date: 10/27/19 Discharge Date: Expected LOS: 10 Initial Reviewer: [email or web address] Initial Review Date: 10/17/2019 Generated: 10/27/19 5:06 pm Comments DCP- Discharge Planning Updated by [email or web address]: Beti Domingo on 10/27/19 3:[address] Multiple calls , per Jack KANG, to [facility]: Dr. Bridges # [phone], Dr. Michaud (c) #[phone], Mrs. Jimenez #[phone], but no answers to the calls. Patient is a client of the [facility] and will return there upon DC. CM notified the patient's guard that he will be returning to [facility] in [place] today, pending P2P, ambulance transport time and chaser car. Last DP export: 10/27/19 10:26 a Patient Name: CAPO VENTURA Page [id number] at 1607 All edits/amendments must be made on the electronic document DICTATION DATE: 10/27/19 [address] CARRIER: JUAN 10/27/19 1607 RPT#: [id number] DC DATE: STATUS: ADM IN [facility] [address] [place] [address] END OF REPORT
--- NOTE | 2019-10-27 16:26 | NUR ---
EMILIA Henderson TO CALL WITH NEW NUMBER FOR DR DIMAS. THIS IS GIVEN TO PEARL COX AND HE CALLED DR DIMAS. DOC TO DOC IS DONE.
--- NOTE | 2019-10-27 16:27 | MORECARE ---
CASE MANAGEMENT DISCHARGE SUMMARY PATIENT: CAPO VENTURA UNIT: [id number] ADM DATE: 10/17/19 AGE: 33 : 86 SEX: M ROOM/BED: D.2101 AUTHOR: DAMION VAZQUEZ PHYSICIAN: REFERRING PHYSICIAN: DUSTY NEWTON MD DATE OF SERVICE: 10/27/19 Discharge Plan Patient Name: CAPO VENTURA [facility] [facility] 1985 Planned Disposition: Court\Law Enforcement Anticipated Discharge Date: 10/27/19 Discharge Date: Expected LOS: 10 Initial Reviewer: [email or web address] Initial Review Date: 10/17/2019 Generated: 10/27/19 5:27 pm Comments DCP- Discharge Planning Updated by [email or web address]: Beti Domingo on 10/27/19 3:[address] 1620: P2P completed per Jack KANG. Per the patient's guard, they will be able to DC after 7 pm. Multiple calls , per Jack KANG, to [facility]: Dr. Bridges # [phone], Dr. Michaud (c) #[phone], Mrs. Jimenez #[phone], but no answers to the calls. Phone numbers provided to Tennille SINGH for contact. Patient is a client of the [facility] and will return there upon DC. MATTHEW has contacted Beti Hull with the [facility] regarding P2P and phone numbers. CM notified the patient's guard that he will be returning to [facility] in [place] today, pending P2P, ambulance transport time and chaser car. Last DP export: 10/27/19 3:07 p Patient Name: CAPO VENTURA Page 10963 at 1627 All edits/amendments must be made on the electronic document DICTATION DATE: 10/27/191626 PARKING GARAGE MANAGER: JUAN 10/27/191626 RPT#: [id number] DC DATE: STATUS: ADM IN [facility] [address] [place] [address] END OF REPORT
--- NOTE | 2019-10-27 16:35 | MORECARE ---
CASE MANAGEMENT DISCHARGE SUMMARY PATIENT: CAPO VENTURA UNIT: [id number] ADM DATE: 10/17/19 AGE: 33 : 86 SEX: M ROOM/BED: D.2101 AUTHOR: DAMION VAZQUEZ PHYSICIAN: REFERRING PHYSICIAN: DUSTY NEWTON MD DATE OF SERVICE: 10/27/19 Discharge Plan Patient Name: CAPO VENTURA Facility: [facility]:[place] : 1985 Planned Disposition: Court\Law Enforcement Anticipated Discharge Date: 10/27/19 Discharge Date: Expected LOS: 10 Initial Reviewer: [email or web address] Initial Review Date: 10/17/2019 Generated: 10/27/19 5:34 pm Comments DCP- Discharge Planning Updated by [email or web address]: Beti Domingo on 10/27/19 3:[address] 1620: P2P completed per Jack KANG, with . Per the patient's guard, they will be able to DC after 7 pm shift change. Patient will be transported via ambulance. Multiple calls , per Jack KANG, to [facility]: Dr. Bridges # [phone], Dr. Michaud (c) #[phone], Mrs. Jimenez #[phone], but no answers to the calls. Phone numbers provided to Tennille SINGH for contact. Patient is a client of the [facility] and will return there upon DC. CM has contacted Beti Hull with the [facility] regarding P2P and phone numbers. CM notified the patient's guard that he will be returning to [facility] in [place] today, pending P2P, ambulance transport time and chaser car. Last DP export: 10/27/19 3:27 p Patient Name: CAPO VENTURA Page 37391 at 1635 All edits/amendments must be made on the electronic document DICTATION DATE: 10/27/191633 BULK PIGMENT REDUCER: JUAN 10/27/19 163 RPT#: [id number] DC DATE: STATUS: ADM IN [address] [address] [address] [place] [address] END OF REPORT
--- NOTE | 2019-10-27 19:29 | NUR ---
TELEMTRY REMOVED. PT D/C WITH AMBULANCE AND GUARD. ALL QUESTIONS ANSWERED.
--- NOTE | 2019-10-28 16:08 | MORECARE ---
CASE MANAGEMENT DISCHARGE SUMMARY PATIENT: CAPO VENTURA UNIT: [id number] ADM DATE: 10/17/19 AGE: 33 : 87 SEX: M ROOM/BED: D.2101 AUTHOR: DAMION VAZQUEZ PHYSICIAN: REFERRING PHYSICIAN: DUSTY NEWTON MD DATE OF SERVICE: 10/28/19 Discharge Plan Patient Name: CAPO VENTURA Facility: [facility]:[place] : 1985 Planned Disposition: Court\Law Enforcement Anticipated Discharge Date: 10/27/19 Discharge Date: 10/27/2019 Expected LOS: 10 Initial Reviewer: [email or web address] Initial Review Date: 10/17/2019 Generated: 10/28/19 5:07 pm Comments DCP- Discharge Planning Updated by [email or web address]: Beti Domingo on 10/27/19 3:[address] 1620: P2P completed per Jack KANG, with . Per the patient's guard, they will be able to DC after 7 pm shift change. Patient will be transported via ambulance. Multiple calls , per Jack KANG, to [facility]: Dr. Bridges # [phone], Dr. Michaud (c) #[phone], Mrs. Jimenez #[phone], but no answers to the calls. Phone numbers provided to Tennille SINGH for contact. Patient is a client of the [facility] and will return there upon DC. MATTHEW has contacted Beti Hull with the [facility] regarding P2P and phone numbers. CM notified the patient's guard that he will be returning to [facility] in [place] today, pending P2P, ambulance transport time and chaser car. Last DP export: 10/27/19 3:35 p Patient Name: CAPO VENTURA Page [id number] at 1608 All edits/amendments must be made on the electronic document DICTATION DATE: 10/28/191606 PENOLOGY TEACHER: JUAN 10/28/191606 RPT#: [id number] DC DATE:10/27/19 STATUS: DIS IN [id number] [place] [address] END OF REPORT
== END 2019-10-27 19:30 | DRG 871 ==
LOC: D.ER 13:27 → D.M2 15:58
PROVIDERS: Family Medicine; ADMIT Emergency Medicine; ATTEND Emergency Medicine
PROC: 05H633Z Insertion of Infusion Device into Left Subclavian Vein, Percutaneous Approach (ICD-10-PCS; principal; 2019-10-18)
PROC: 05HY33Z Insertion of Infusion Device into Upper Vein, Percutaneous Approach (ICD-10-PCS; 2019-10-23)
DX: A41.01 Sepsis due to Methicillin susceptible Staphylococcus aureus (principal); J18.9 Pneumonia, unspecified organism; E87.1 Hypo-osmolality and hyponatremia; G72.81 Critical illness myopathy; D64.9 Anemia, unspecified; E87.6 Hypokalemia; F32.9 Major depressive disorder, single episode, unspecified; F41.9 Anxiety disorder, unspecified; I05.9 Rheumatic mitral valve disease, unspecified